=== PATIENT | female | born 1955 | race Caucasian/White ===

== ENCOUNTER 2018-05-27 00:24 | Outpatient (CLI) | payer OTHER, SELFPAY ==
--- NOTE | 2018-05-27 07:30 | DI.MAMMO_ITS ---
SYMPTOM/DIAGNOSIS: SCREENING MAMMOGRAM MAMMOGRAM: Mammograms were interpreted according to the usual protocol including computer analysis with CAD system, tomosynthesis and C view imaging. Comparison with prior examinations. No masses or microcalcifications are seen. There is nothing to suggest malignancy. IMPRESSION: Negative mammogram. Routine screening is recommended. Breast density D, Category 1. MQSA ASSESSMENT OF FINDINGS: Negative. Category 1. Patient will receive a letter notifying them of these results. BI-RADS category D. The breasts are extremely dense, which lowers the sensitivity of mammography.
== END 2018-05-27 00:44 ==
PROVIDERS: PCP Family Medicine; Visit Provider Family Medicine
DX: Z12.31 Encounter for screening mammogram for malignant neoplasm of breast (principal)
CPT/HCPCS: 77063; 77067

== ENCOUNTER 2018-10-06 11:25 | Outpatient (CLI) | payer OTHER, SELFPAY ==
[2018-10-06 12:56] LABS: HCT 40.1 % (36.0-46.0); HGB 12.8 g/dL (12.0-15.5); Mean Corp. HGB Concentration 31.9 g/dL (32.0-36.0); Mean Corpuscular Hemoglobin 27.9 pg (27.0-33.0); Mean Corpuscular Volume 87.6 fL (80-95); Mean Platelet Volume 11.3 fL (8.0-11.0); Platelet Count 208 x1000/uL (130-400); RBC 4.58 m/cumm (4.00-5.20); RBC Distribution Width 14.8 % (11.7-14.6); White Blood Cell Count 4.56 k/cumm (4.4-10.8)
[2018-10-06 12:59] LABS: Bilirubin Negative (Negative); Blood Negative (Negative); Clarity Clear; Glucose Negative (Negative); Ketones Negative (Negative); Leukocyte Esterase Negative (Negative); Nitrite Negative (Negative); Specific Gravity 1.015 (1.005-1.025); Urobilinogen 0.2 EU/dL (Up TO 0.2)
[2018-10-06 13:17] LABS: ALT 25 U/L (12-78); AST 27 U/L (15-37); Albumin 3.8 g/dL (3.4-5.0); Alkaline Phosphatase 52 U/L (46-116); Anion Gap 5.9 mmol/L (3-11); BUN 15 mg/dL (7-18); Bilirubin, Total 0.6 mg/dL (0.2-1.0); CO2 32.1 mmol/L (21.0-32.0); CREATININE 0.75 mg/dL (0.55-1.02); Calcium 10.1 mg/dL (8.5-10.1); Chloride 103 mmol/L (98-107); Glucose 98 mg/dL (70-100); Potassium 4.3 mmol/L (3.5-5.1); Sodium 141 mmol/L (136-145); TSH (W/Ref FT4) 1.53 uIU/mL (0.358-3.74); Total Protein 7.7 g/dL (6.4-8.2)
[2018-10-06 14:15] LABS: Hemoglobin A1C 6.1 % (4.5-6.2)
[2018-10-07 12:50] LABS: Lyme Ab w Rflx to Lyme Confirm Negative
== END 2018-10-06 11:45 ==
PROVIDERS: PCP Family Medicine; Visit Provider Family Medicine
DX: G62.9 Polyneuropathy, unspecified (principal); R20.0 Anesthesia of skin; R20.2 Paresthesia of skin
CPT/HCPCS: 36415; 80053; 85027; 81003; 83036; 84443; 86618

== ENCOUNTER 2018-11-07 01:47 | Outpatient (CLI) | payer OTHER, SELFPAY ==
--- NOTE | 2018-11-07 07:51 | DI.MRI_ITS ---
SYMPTOM/DIAGNOSIS: REPEAT OF SENSORY CHANGES IN LOWER EXTREMITIES/HANDS, ? 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 There are no priors for comparison. There is normal signal in the brain parenchyma. The diffusion weighted images have a normal appearance. No evidence of an acute infarct is seen. No evidence of intracranial hemorrhage is present. The ventricles and sulci are consistent with the patient's age. There is no acute midline shift or mass effect. There is a flow void seen in the [place]. The orbits and retro-orbital soft tissues are unremarkable. The pituitary gland has a normal appearance. There is mild mucosal thickening in the right maxillary sinus. The remaining visualized paranasal sinuses are clear. IMPRESSION: No evidence of an intracranial mass, infarct or hemorrhage.
== END 2018-11-07 02:07 ==
PROVIDERS: PCP Family Medicine; Visit Provider Family Medicine
DX: R20.8 Other disturbances of skin sensation (principal); G62.9 Polyneuropathy, unspecified; Z86.69 Personal history of other diseases of the nervous system and sense organs
CPT/HCPCS: 70551

== ENCOUNTER 2019-07-08 15:31 | Emergency (ER) | payer OTHER, SELFPAY ==
[2019-07-08 15:36] VITALS: BP 118/65; PULSE 65; RESP 22; TEMP 36.8; O2SAT 98
--- NOTE | 2019-07-08 17:19 | DI.RAD_ITS ---
EXAM: XR LUMBAR SPINE COMPLETE INDICATION: pain, fall. COMPARISON: No exams were available for comparison TECHNIQUE: 2D digital imaging was performed. FINDINGS: There are 5 lumbar type vertebral bodies. No spondylolysis or spondylolisthesis is present. No acute fracture or subluxation is seen in the lumbar spine. Degenerative changes are seen in the lumbar spine. The findings are most marked at the L5-S1 disc sp denita. There is a large amount of stool throughout the colon which may represent constipation. There are calcifications overlying the left kidney suspicious for nephrolithiasis. IMPRESSION: 1. No acute fracture or subluxation in the lumbar spine. 2. Degenerative changes in the lumbar spine. 3. Findings suspicious for nephrolithiasis.
--- NOTE | 2019-07-08 17:19 | DI.RAD_ITS ---
EXAM: XR RIBS LT PA CHEST 3V INDICATION: pain, fall. COMPARISON: ABD FLAT UPRIGHT PA CHEST from 05/06/2015 TECHNIQUE: 2D digital imaging was performed. FINDINGS: The heart size and pulmonary vasculature are within normal limits. The lungs are clear. No pleural effusion or pneumothorax is identified. No fracture is identified. The left ribs are intact. IMPRESSION: No acute pulmonary process. No evidence of a rib fracture.
--- NOTE | 2019-07-08 17:19 | DI.RAD_ITS ---
EXAM: XR THORACIC SPINE COMPLETE INDICATION: pain, fall. COMPARISON: CERV SP WITH OBL FLEX/EXT from 12/29/2011 TECHNIQUE: 2D digital imaging was performed. FINDINGS: There is normal alignment of the thoracic spine. No acute fractures or subluxations are present. Mi ld to moderate degenerative changes are seen in the thoracic spine. The paraspinal lines appear unre markable. IMPRESSION: No acute fracture or subluxation in the thoracic spine.
--- NOTE | 2019-07-08 17:26 | DI.VRAD_ITS ---
PROCEDURE INFORMATION: Exam: XR Lumbosacral Spine, 4 or 5 Views Exam date and time: 07/08/2019 5:18 PM Clinical history: 64 years old, female; Low back pain TECHNIQUE: Imaging protocol: XR of the lumbosacral spine, 4 or 5 views. COMPARISON: No relevant prior studies available. FINDINGS: Vertebrae: There is marked disc space narrowing at L5-S1 with small vertebral endplate osteophytes. Vertebral heights are well maintained. No fracture or spondylolisthesis is seen. Gastrointestinal tract: There is a moderate amount of stool throughout the colon. This partially obscures the sacrum. Organs: Multiple calculi are seen overlying each kidney likely representing renal stones. Soft tissues: Normal. IMPRESSION: 1. No fracture or other acute abnormality seen. 2. L5-S1 degenerative disc disease. 3. Suspect bilateral renal stones. Dictated and Authenticated by: Aroldo Shrestha MD. Ordering:RACHELLE High MD
--- NOTE | 2019-07-08 17:27 | DI.VRAD_ITS ---
PROCEDURE INFORMATION: Exam: XR Left Ribs with PA Chest, 3 Views Exam date and time: 07/08/2019 5:17 PM Clinical history: 64 years old, female; Injury or trauma; Fall; Initial encounter; Rib area, left side; Blunt trauma TECHNIQUE: Imaging protocol: XR Left ribs 3 views with PA chest. COMPARISON: No relevant prior studies available. FINDINGS: Lungs: Unremarkable. No consolidation. Pleural space: Unremarkable. No pleural effusion. No pneumothorax. Heart/Mediastinum: Unremarkable. No cardiomegaly. Bones/joints: Unremarkable. IMPRESSION: No acute findings. Dictated and Authenticated by: Aroldo Shrestha MD. Ordering:RACHELLE High MD
--- NOTE | 2019-07-08 17:29 | DI.VRAD_ITS ---
PROCEDURE INFORMATION: Exam: XR Thoracic Spine, 3 Views Exam date and time: 07/08/2019 5:17 PM Clinical history: 64 years old, female; Injury or trauma; Fall; Initial encounter; Blunt trauma (contusions or hematomas) TECHNIQUE: Imaging protocol: XR of the thoracic spine, 3 views. COMPARISON: No relevant prior studies available. FINDINGS: Vertebrae: There is mild disc space narrowing throughout the thoracic spine. Moderate degenerative disc disease is incidentally visualized in the cervical spine at what appears to be C5-6. No fracture or spondylolisthesis. Soft tissues: Normal. IMPRESSION: 1. No acute findings. 2. Xsxq-xw-zasjnzvp degenerative disc disease. Dictated and Authenticated by: Aroldo Shrestha MD. Ordering:RACHELLE High MD
[2019-07-08 18:28] LABS: Bilirubin Negative (Negative); Blood Negative (Negative); Clarity Sl Cloudy (Clear); Glucose Negative (Negative); Ketones Negative (Negative); Leukocyte Esterase Trace (Negative); Nitrite Negative (Negative); Specific Gravity 1.025 (1.005-1.025); Urobilinogen 0.2 EU/dL (Up TO 0.2)
[2019-07-08 18:37] LABS: Bacteria Many HPF (Negative); C & S Indicated? Yes; Crystals Negative HPF (Negative); Epithelial Cells Many HPF (Negative); Mucus Negative (Negative); Other Cells Few Transitional (Negative); RBC Negative (0-2)
[2019-07-08 19:03] VITALS: BP 108/65; PULSE 68; RESP 17; O2SAT 99
--- NOTE | 2019-07-08 22:38 | ED.GENADUL_ITS ---
Discharge Plan Disposition Patient Disposition: HOME Condition: Good Discharge Details Chief Complaint: Nk/Back Pain Clinical Impression: Back contusion Primary Care Provider: Chante Telles ED Provider: Anila Melendez Home Meds and New Rx's Prescriptions: New diazepam [Valium] 5 mg tablet 5 mg PO TID PRN (Reason: muscle spasm) Qty: 6 RF: 0 No Action Matrix Synergy tablet See Rx Instructions .ROUTE .COMPLEX RF: 0 Optimum tablet See Rx Instructions .ROUTE .COMPLEX RF: 0 Glucosamine Complex-MSM 1 EACH capsule 1,000 mg PO BID RF: 0 calcium carbonate-vitamin D3 [Caltrate with Vitamin D3] 1 EACH tablet 1 ea PO DAILY RF: 0 turmeric root extract 500 MG capsule 1 cap PO BID RF: 0 Estring 2 mg (7.5 mcg /24 hour) ring 1 vag ring VG Q 3 months Qty: 1 RF: 4 Discharge Instructions Instructions: Contusion in Adults (ED) Additional Instructions: Ice or heat to the area of discomfort. Motrin or tyelnol for soreness if needed. Rest. Activities as tolerated. Use muscle relaxant if needed for severe muscle spasm if needed. Do not drive, drink, or work, while taking this medication. Recheck with PCP in next 3-5 days if not improving. Return for any worsening, concerns, or alarming symptoms sooner if needed. Discharge Data Discharge Date/Time-TO BE ENTERED AT DEPARTURE: 07/08/19 19:01 Medical Decision Making Is a 64-year-old woman who sustained a trip and fall backwards landing on her low back. Patient has x-rays this evening which are ultimately unremarkable for identifiable fracture of the lower back. Incidental finding of renal stones noted which I feel are entirely unrelated to tonight fall. Patient was made aware of the incidental findings. Degenerative changes noted. Patient offered medication for spasm but does report her pain is improved at this time and she does not feel she needs medications by mouth at this time. Was provided with 6 tablets of Valium for severe intolerable muscle spasm pain which she feels she is very unlikely to fill would prefer treatment with Motrin or Tylenol at this time and conservative treatments with ice and rest. Alarming signs and symptoms for which patient should have immediate return were discussed. Nothing to indicate acute renal injury as she has no hematuria, dizziness weakness or significant hypotension. The patient was stable and requested discharge. Prior to discharge, my usual and customary return precautions were reviewed with the patient - this included follow-up instructions and reasons to return to the Emergency Department if conditions worsens, does not improve as expected, or other new concerns arise. HPI General Date/Time Provider Initiated Documentation: 07/08/19 15:56 . HPI Narrative: Is a 64-year-old woman who presents for a fall. Patient reports she was dragging a log backwards when she tripped over a small branch behind her ultimately falling on another log across her mid and lower back. Injury occurred today. Patient reports pain at the site of impact in her mid and lower back. Patient denies any hematuria since fall several hours ago. Denies lightheaded or dizziness. Patient reports she is comfortable when sitting but does report significant pain when standing or trying to extend backwards. Patient does report increased pain when ambulating. Patient reports during episodes of back pain with movement pain is difficult to tolerate. Patient denies any numbness, tingling or weakness from the waist down. No abdominal pain, distention or abdominal concerns at this time. Eating and drink without difficulty. Moving bowels without difficulty. Urinating normally. Denies headache or dizziness. Denies striking head. No neck pain. Related Data Home Medications Medication Instructions Recorded Confirmed calcium carbonate-vitamin D3 1 ea PO DAILY 11/01/12 07/08/19 [Caltrate 600 + D Tablet] ikijpcueyuq-aty-jrlkpflxr-vitC 1,000 mg PO BID 11/01/12 07/08/19 [Glucosamine Complex-Msm Cap] turmeric root extract 1 cap PO BID 04/24/13 07/08/19 Matrix Synergy See Rx Instructions .ROUTE .COMPLEX 10/06/18 07/08/19 Optimum See Rx Instructions .ROUTE .COMPLEX 10/06/18 07/08/19 estradiol 1 vag ring VG Q 3 months #1 each 06/23/19 07/08/19 diazepam [Valium] 5 mg PO TID PRN #6 tab 07/08/19 Previous Rx's Medication Instructions Recorded estradiol 1 vag ring VG Q 3 months #1 each 06/23/19 diazepam [Valium] 5 mg PO TID PRN #6 tab 07/08/19 Allergies Allergy/AdvReac Type Severity Reaction Status Date / Time No Known Drug Allergies Allergy Unverified 07/08/19 15:40 General Stated Complaint: Nk/Back Pain MARILYN: 3 Review of Systems All systems reviewed & are unremarkable except as noted in HPI and below Constitutional Constitutional: Denies chills, Denies fatigue, Denies fever(s), Denies headache(s) and Denies malaise ENT Ears, Nose, Mouth, and Throat: Denies vertigo, Denies dizziness, Denies headache(s) and Denies neck pain Cardiovascular Cardiovascular: Denies chest pain Respiratory Respiratory: Denies cough, Denies pain on inspiration, Denies pain with cough and Denies wheezing Gastrointestinal Gastrointestinal: Denies abdominal pain and Denies bloating Genitourinary Genitourinary: Denies hematuria and Denies dysuria Musculoskeletal Musculoskeletal: Reports back pain, Denies neck pain, Denies numbness and Denies radiating pain into limb Neurologic Neurologic: Denies vertigo, Denies dizziness, Denies headache(s) and Denies numbness Endocrine Endocrine: Denies fatigue Allergic/Immunologic Allergic/Immunologic: Denies wheezing [facility] Medical History Acute infective polyneuritis (Resolved) 11/01/12 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 with recent recurrence of symptoms in Sep 2018 Anal fissure (Resolved) 11/01/12 Annual physical exam (Resolved 12/19/15) Chronic inflammatory demyelinating polyradiculoneuropathy (Resolved) 11/01/12 Disorder of breast (Resolved) dense,nodular DUB (dysfunctional uterine bleeding) (Resolved) 11/01/12 Heart murmur (Resolved) 11/01/12 intermittent systolic murmur Onychomycosis (Chronic) Shoulder pain (Resolved) 07/29/03 left shoulder bursitis Social History Smoking/Tobacco Use Status: Never Alcohol Intake: current Alcohol Intake frequency: a few times a week Drug use: Never Substance use type: does not use Household members: spouse current occupation: [employer] Pets and animals: Yes Pets and animals: cat(s) What type of physical activity do you participate in: walking Duration: 30-45 minutes/day Frequency: 3-4 times per week Lizabeth/Scientology: Adventist Special lizabeth needs: No Do you feel safe at home: Yes Do you feel safe in your relationship?: Yes Exam Narrative Exam Narrative: CONST: Healthy appearing patient, in no acute distress. Well hydrated. Alert and alert. NECK: Normal visual inspection. FROM. Trachea midline. No Midline tenderness. CHEST: Normal insepection of the chest. No anterior chest pain with palpation no significant lateral chest palpation of the ribs. Mild back pain with palpation of the inferior ribs on the left. RESP: Normal respiratory effort. Speaking full sentences. No cough. No audible wheezing. No retractions. Breath sounds clear and full bilaterally. No rhonchi, rales or wheezing CARDIO: No JVD. Regular rate and rhythm, no murmurs or rubs. MUSCULOSKELETAL: Normal Gait. FROM of all extremities. No foot drop. Low back pain on the left with straight leg raise bilaterally at approximately 45 degrees. DTRs intact and equal bilateral GI: Abdomen is soft, nontender, no rebound, guarding or peritoneal signs Back; mild inferior thoracic tenderness and superior lumbar tenderness with palpation. Soft tissue swelling noted paraspinal area on the left mid and lower back. No ecchymosis. No CVA tenderness. SKIN: Normal. Dry. No rashes. NEURO: Alert and awake. Speech clear. PSYCH: Normal affect. Cooperative. Course Vital Signs Vital signs: Vital Signs Temperature 36.8 C 07/08/19 15:36 Pulse 65 07/08/19 15:36 Respiratory Rate 22 07/08/19 15:36 Blood Pressure 118/65 07/08/19 15:36 Pulse Oximetry 98 07/08/19 15:36 Temperature 36.8 C 07/08/19 15:36 Temperature Source Skin 07/08/19 15:36 Pulse 68 07/08/19 19:03 Respiratory Rate 17 07/08/19 19:03 Respiratory Effort 07/08/19 15:42 Blood Pressure 108/65 07/08/19 19:03 Blood Pressure Position Sitting 07/08/19 15:36 Pulse Oximetry 99 07/08/19 19:03 Oxygen Delivery Method Room Air 07/08/19 15:36 Oxygen Flow Rate 0 07/08/19 15:36 Pain Level 8 07/08/19 15:53 Lab/Test Results Lab/Test Results: 07/08/19 18:21 Urine - Reflex from Ua Urine Culture - Pending Laboratory Tests Range/Units 07/08/19 18:21 Urine Color (Yellow) Yellow Urine Clarity (Clear) Sl cloudy Urine pH (5-8) 6.0 Ur Specific [place] (1.005-1.025) 1.025 Urine Protein (Negative) mg/dL Negative Urine Ketones (Negative) mg/dL Negative Urine Blood (Negative) Negative Urine Nitrite (Negative) Negative Urine Bilirubin (Negative) Negative Urine Urobilinogen (Up TO 0.2) EU/dL 0.2 Ur Leukocyte Esterase (Negative) Trace H Urine RBC (0-2) Negative Urine WBC (0-5) HPF 10-20 Ur Epithelial Cells (Negative) HPF Many Urine Crystals (Negative) HPF Negative Urine Bacteria (Negative) HPF Many Urine Mucus (Negative) Negative Urine Other (Negative) Few transitional Ur Culture Indicated? Yes Urine Glucose (Negative) mg/dL Negative
== END 2019-07-08 19:01 | disposition home or self-care (01) ==
PROVIDERS: Emergency Provider Physician Assistant; PCP Family Medicine
DX: S30.0XXA Contusion of lower back and pelvis, initial encounter (principal); N20.0 Calculus of kidney; W01.0XXA Fall on same level from slipping, tripping and stumbling without subsequent striking against object, initial encounter
CPT/HCPCS: 71101; 99284; 72072; 72110; 81003; 81015; 87086

== ENCOUNTER 2020-01-02 12:58 | Outpatient (REF) | payer OTHER, SELFPAY ==
--- NOTE | 2020-01-02 11:00 | PAPFT_PTH ---
PATIENT: Roseanna Smith LOC: [facility] U#:[id number] AGE/SX: 64/F ROOM: RE01/02/[address]: Chante Telles MD, DC : 1955 BED: DIS: 01/02/2020 SPEC #: [id number] RECD: 01/03/20 12:03 STATUS: KENNA RIDDLE #: [id number] PETE: 01/02/20 11:[address]: Chante Telles DEPT: [facility] Cytology RECD BY: Francisco Bishop Tissues: 1 - CX/ENDOCX FOR PAP SMEARS Procedures: PAP THIN PREP/UVM Screening HPV DNA PROBE Comments: [id number]
== END 2020-01-02 13:18 ==
LOC: LBN 12:58
PROVIDERS: PCP Family Medicine; Visit Provider Family Medicine
DX: Z12.4 Encounter for screening for malignant neoplasm of cervix (principal); Z11.51 Encounter for screening for human papillomavirus (HPV)
CPT/HCPCS: 88142; 87624

== ENCOUNTER 2020-01-11 01:04 | Outpatient (CLI) | payer OTHER, SELFPAY ==
--- NOTE | 2020-01-11 06:15 | DI.MAMMO_ITS ---
EXAM: MG MAMMO SCREENING CLINICAL HISTORY: screening,Z12.39 TECHNIQUE: Mammograms were interpreted according to the usual protocol including computer analysis w [employer] CAD system, tomosynthesis and C-view imaging. COMPARISON: FINDINGS: The breasts are heterogeneously dense. No dominant mass or clumped microcalcification is identified in either breast. The current examination is compared with previous examinations including April 2018 and there has been no gross interval change appearance comparison previous studies. IMPRESSION: No specific evidence of malignancy at this time. Routine screening examinations are suggested at yea rly intervals due to the family history of breast carcinoma. BI-RADS Cat 1 - Negative: Breast Density - Category C - Heterogeneously dense:
== END 2020-01-11 01:24 ==
PROVIDERS: PCP Family Medicine; Visit Provider Family Medicine
DX: Z12.31 Encounter for screening mammogram for malignant neoplasm of breast (principal); Z80.3 Family history of malignant neoplasm of breast
CPT/HCPCS: 77063; 77067

== ENCOUNTER 2020-01-11 01:47 | Outpatient (CLI) | payer OTHER, SELFPAY ==
[2020-01-11 09:06] LABS: Calculated LDL 142 mg/dL (<100); Cholesterol 247 mg/dL (<200); HDL Cholesterol 97 mg/dL (40-60); Triglyceride 40 mg/dL (<150)
== END 2020-01-11 02:07 ==
PROVIDERS: PCP Family Medicine; Visit Provider Family Medicine
DX: Z00.00 Encounter for general adult medical examination without abnormal findings (principal); E11.9 Type 2 diabetes mellitus without complications
CPT/HCPCS: 36415; 80061; 83036

== ENCOUNTER 2020-02-20 08:11 | Outpatient (CLI) | payer OTHER, SELFPAY ==
[2020-02-23 01:03] LABS: SARS-CoV-2 RNA Undetected (Undetected); SARS-CoV-2 Specimen Source Nasopharynx
== END 2020-02-20 08:31 ==
PROVIDERS: PCP Family Medicine; Visit Provider Family Medicine
DX: Z11.59 Encounter for screening for other viral diseases (principal)
CPT/HCPCS: U0003

== ENCOUNTER 2020-03-14 06:20 | Day surgery (SDC) | payer OTHER, SELFPAY ==
[2020-03-14 06:13] VITALS: BP 114/72; PULSE 58; RESP 20; TEMP 36.6; O2SAT 98
[2020-03-14] MEDS: Lactated Ringers 1,000 ML 80 ML IV (06:49)
--- NOTE | 2020-03-14 07:55 | BOWEL_PTH ---
PATIENT: Roseanna Smith LOC: [facility] U#:[id number] AGE/SX: 65/F ROOM: RE03/14/[address]: Letty Montiel : 1955 BED: DIS: 03/14/2020 SPEC #: [id number] RECD: 03/14/20 12:26 STATUS: KENNA REQ #: [id number] PETE: 03/14/20 07:[address]: Letty Montiel DEPT: Surgical Specimen RECD BY: Roseanna Thomas ENTERED: 03/14/20 12:26 SP TYPE: Bowel OTHR DR: Chante Telles MD, DC Tissues: 1 - BIOPSY BOWEL Procedures: GROSS AND MICRO LEVEL 4 Comments: [id number]
[2020-03-14] MEDS: Endoscopic Tattoo 5 ML SYR IJ (08:18)
--- NOTE | 2020-03-14 08:33 | W.COLOREPORT ---
Date of service: 03/14/20 Time of Service: 08:33 Colonoscopy Report Date of procedure: 03/14/20 Pre-op diagnosis general: +cologuard Post-op diagnosis procedure note: other (polyp x2 @ 70cm ) Procedure: CE polypectomy x2. tatoo clip x2 Surgeon: Letty Montiel Anesthesia proc note operative: MAC Estimated blood loss (mL): 2 Pathology: other Complications: None Disposition: same day Prep: Miralax/Dulcolax Retraction Time: 45 mins Procedure Description: After informed consent was obtained the patient was taken to the procedure room and placed in a left decubitous position. Monitors were applied and a time out was done. The patients name, date of , procedure, allergies to medications and metal in their body was reviewed. The patient was then sedated. Once sedated and comfortable a rectal exam was done. External exam was normal. Internal exam revealed a normal sphincter tone and no palpable masses. The scope was then introduced and retrofelexed. No internal hemorrhoids were identified. The scope was then advanced to the cecum [w/out difficulty. The TI and appendiceal orifice were identified. The prep was adequate. The scope was then slowly retracted over 45 minutes back into the rectum. Polyps were removed at 70.x2 at the hepatic flexure. One polyp was less than 5 mm. The second polyp was greater than 1 cm. It was flat. It was at 70 cm. It was removed with hot biting biopsy forceps. The area was tattooed. 2 endoclips were placed across the area. There is no bleeding noted. There are 1 or 2 small diverticula in the sigmoid colon there is a very small and of no consequence. There are no other polyps in the colon. There is no signs of any bleeding. The mucosa is pink and healthy. The scope was removed and the patient was woken up and taken back to Same day surgery in stable condition. The patient tolerated the procedure well and there were no immediate complications. Follow up: The patient should follow up in 1-2 years unless they develop changes in bowel habits or other new gastrointestinal complaints.
--- NOTE | 2020-03-14 08:36 | W.PM.DSUDISC ---
Discharge Plan Disposition Patient Disposition: HOME Condition: Good Discharge Details Reason For Visit: colon scope Attending Provider: Letty Montiel Primary Care Provider: Chante Telles Home Meds and New Rx's Prescriptions: No Action Estring 2 mg (7.5 mcg /24 hour) ring 1 vag ring VG [id number] RF: 0 Discharge Instructions Additional Instructions: Findings: Polyp x2 No ASA/NSAID's x2 weeks. Soft diet x 72 hrs than regular diet no heavy lifting or strenuous activity x 72hrs Repeat scope in 1-2 yrs. Follow up:2-3 wks w/ Tiana Please call if you develop: fevers >101.5 Nausea or Vomiting Abdominal pain that is not transient DAY SURGERY UNIT POST COLONOSCOPY INSTRUCTIONS 1. Because there will be medication in your system for the next 24 hours, you may feel a little sleepy. Your coordination will be affected. Therefore: a. Do not drive or operate dangerous equipment for 24 hours. b. Do not drink alcohol beverages for 24 hours (not even beer). c. Plan to go home and rest for the day. 2. Generally there are no restrictions on your activity after a day or so has gone by, but you may feel a bit fatigued for a few days. 3 After you arrive home you may have a light meal and return to a normal diet as you can tolerate it without feeling sick to your stomach. 4. After surgery, you may feel pain or discomfort. This should be only transient, but if it persists please contact your doctor. 5. If there are any questions regarding the findings of your procedure, please feel free to contact your doctor. 6. If you are unable to contact your doctor with a problem, contact the hospital at [phone]. 7. Continue all your regular medications unless directed otherwise. I understand the above instructions and have no questions. Signature of Patient or Responsible Adult Escort Date/Time Name of Responsible Adult Escort Signature of Nurse Date/Time Discharge Orders Discharge Orders: Discharge Order (Routine); Ordered 03/14/20 Ordered By: Letty Montiel DS: Diagnosis Discharge Diagnosis (1) Positive colorectal cancer screening using Cologuard test: Status: Acute (2) Adenomatous colon polyp: Status: Acute
[2020-03-14 09:00] VITALS: BP 125/72; PULSE 60; RESP 18; TEMP 36.2; O2SAT 99
== END 2020-03-14 10:20 | disposition home or self-care (01) ==
LOC: SUR 12:45
PROVIDERS: PCP Family Medicine; Visit Provider Surgery
PROC: 0DJD8ZZ Inspection of Lower Intestinal Tract, Via Natural or Artificial Opening Endoscopic (ICD-10-PCS; CPT 45378; principal; 2020-03-14 07:30)
DX: R19.5 Other fecal abnormalities (principal); Z87.19 Personal history of other diseases of the digestive system; K63.5 Polyp of colon
CPT/HCPCS: 45381; 45384; 88305; J2001

== ENCOUNTER → 2020-03-27 14:02 | Outpatient (BNVA) | payer OTHER, SELFPAY | PROVIDERS: PCP Family Medicine; Referring Provider Family Medicine; Visit Provider Surgery | DX: Z48.815 Encounter for surgical aftercare following surgery on the digestive system (principal); K63.5 Polyp of colon | CPT/HCPCS: 99211 ==

== ENCOUNTER 2020-08-06 01:49 | Outpatient (CLI) | payer OTHER, SELFPAY ==
--- NOTE | 2020-08-06 07:45 | DI.RAD_ITS ---
EXAM: XR FOOT LT COMPLETE CLINICAL HISTORY: left foot pain,m79.672 TECHNIQUE: COMPARISON: No exams were available for comparison FINDINGS: Three views were obtained. BB marker is placed over the plantar aspect 4th. Slight degenerative misael nges the IP joints are noted. No other focal abnormality seen. No abnormality of alignment. IMPRESSION: Mild DJD of foot. RADIATION DOSE DELIVERED: Total DLP Total DLP
== END 2020-08-06 02:09 ==
PROVIDERS: PCP Family Medicine; Visit Provider Family Medicine
DX: M19.072 Primary osteoarthritis, left ankle and foot (principal)
CPT/HCPCS: 73630

== ENCOUNTER 2021-02-27 20:46 | Outpatient (REF) | payer OTHER, MEDICARE, SELFPAY ==
[2021-02-27 21:35] LABS: Abs Immature Grans 0.01 10^3/uL (0.0-0.06); Absolute Basophil Count 0.04 10^3/uL (0.0-0.2); Absolute Eosinophil Count 0.18 10^3/uL (0.0-0.7); Absolute Lymphocyte Count 1.08 10^3/uL (1.2-3.4); Absolute Monocyte Count 0.42 10^3/uL (0.1-0.8); Absolute Neutrophil Count 3.06 10^3/uL (1.2-6.7); Basophils % 0.8; Eosinophils % 3.8; Immature Grans % 0.2; Lymphocytes % 22.5; MCH 27.6 pg (27.0-33.0); MCV 89.2 fL (80-95); Monocytes % 8.8; Neutrophils % 63.9; Nucleated RBC 0 %; Platelet Count 223 10^3/uL (130-400); RBC 4.71 10^6/uL (3.93-5.22); RDW 15.1 % (11.7-14.6); RDW-SD 50.2 fL; WBC 4.79 10^3/uL (4.4-10.8)
[2021-02-27 21:45] LABS: Iron 88 ug/dL (50-170)
[2021-02-27 21:51] LABS: Hemoglobin A1C 6.1 % (<5.7)
[2021-02-27 21:58] LABS: Ferritin 20 ng/mL (8-252)
== END 2021-02-27 20:47 | disposition home or self-care (01) ==
LOC: LBN 20:46
PROVIDERS: PCP Family Medicine; Visit Provider Family Medicine
DX: D64.9 Anemia, unspecified (principal); E11.9 Type 2 diabetes mellitus without complications; R21 Rash and other nonspecific skin eruption; Z00.00 Encounter for general adult medical examination without abnormal findings; M25.531 Pain in right wrist
CPT/HCPCS: 82728; 83036; 83540; 85025

== ENCOUNTER 2021-03-05 15:08 | Outpatient (CLI) | payer OTHER, MEDICARE, SELFPAY ==
--- NOTE | 2021-03-05 14:00 | DI.RAD_ITS ---
Exam(s) XR WRIST RT COMPLETE EXAM: XR WRIST RT COMPLETE CLINICAL HISTORY: F/u. TECHNIQUE: 2D digital imaging was performed. COMPARISON: No exams were available for comparison FINDINGS: BONES: There is a nondisplaced transverse fracture through the distal metaphysis of the right radius. No bony destructive lesion is seen. JOINTS: The carpal bones are normally aligned. SOFT TISSUE: Normal. IMPRESSION: Nondisplaced transverse fracture through the distal metaphysis of the right radius. DATA REPOSITORY: RADIATION DOSE DELIVERED:
== END 2021-03-05 15:09 | disposition home or self-care (01) ==
LOC: DIORS 15:09
PROVIDERS: PCP Family Medicine; Referring Provider Family Medicine; Visit Provider Student in an Organized Health Care Education/Training Program
DX: S52.561A Barton's fracture of right radius, initial encounter for closed fracture (principal); X58.XXXA Exposure to other specified factors, initial encounter
CPT/HCPCS: 73110

== ENCOUNTER 2021-03-26 15:00 | Outpatient (CLI) | payer OTHER, MEDICARE, SELFPAY ==
--- NOTE | 2021-03-26 14:45 | DI.RAD_ITS ---
Exam(s) XR WRIST RT LIMITED EXAM: XR WRIST RT LIMITED CLINICAL HISTORY: distal fx f/u. TECHNIQUE: 2D digital imaging was performed. COMPARISON: CR XR WRIST RT COMPLETE from 03/05/2021 FINDINGS: Again noted is a healing transverse fracture site the distal radius as denoted by a sclerotic line we re evident on previous. No other fractures. No displacement. No osseous lesions. No significant u lnar variance IMPRESSION: DATA REPOSITORY: RADIATION DOSE DELIVERED:
== END 2021-03-26 15:01 | disposition home or self-care (01) ==
LOC: DIORS 15:02
PROVIDERS: PCP Family Medicine; Visit Provider Student in an Organized Health Care Education/Training Program
DX: S52.591D Other fractures of lower end of right radius, subsequent encounter for closed fracture with routine healing (principal); X58.XXXA Exposure to other specified factors, initial encounter
CPT/HCPCS: 73100

== ENCOUNTER 2021-08-29 01:55 | Outpatient (CLI) | payer OTHER, SELFPAY ==
[2021-08-29 10:25] LABS: Source Nasal/Nares
[2021-08-29 16:48] LABS: COVID-19 PCR Negative (Negative)
== END 2021-08-29 01:56 | disposition home or self-care (01) ==
LOC: LBO 01:59
PROVIDERS: PCP Family Medicine; Visit Provider Student in an Organized Health Care Education/Training Program
DX: Z20.822 Contact with and (suspected) exposure to COVID-19 (principal)
CPT/HCPCS: 87635

== ENCOUNTER 2021-09-01 10:52 | Day surgery (SDC) | payer OTHER, SELFPAY ==
--- NOTE | 2021-09-01 11:07 | W.ANESPRE ---
General Info Date of Service Date Performed: 09/01/21 Height: 5 ft 4 in Weight: 57.606 kg Body Mass Index (BMI): 21.8 Surgical Procedure: Operation Date: 09/01/21 15:25 Proposed Procedures Side Surgeon p Wrist ECTR Right Miguel Sanders MD Meds Allergies and Home Medications Allergies Allergy/AdvReac Type Severity Reaction Status Date / Time No Known Drug Allergies Allergy Verified 09/01/21 11:11 Home Medication Medication Instructions Recorded tacrolimus 0.1 % topical ointment 1 applic TOPICAL BID PRN 08/05/20 estradiol 1 vag ring VG [id number] #1 ea 09/05/20 clobetasol 0.05 % topical ointment 1 applic TOPICAL DAILY PRN #60 g 02/27/21 acetaminophen 500 mg PO Q6H PRN #60 tab 09/01/21 hydrocodone-acetaminophen 1 tab PO Q6H PRN #4 tab 09/01/21 ibuprofen 600 mg PO TID PRN #60 tab 09/01/21 Current Visit Medications: Current Medications Generic Name Dose Route Start Last Admin Trade Name Freq PRN Reason Stop Dose Admin Ringer's Solution 1,000 mls @ 80 mls/hr 09/01/21 06:00 IV 09/27/21 23:59 INFUSION NAYANA Cefazolin Sodium/Dextrose 2 gm in 50 mls @ 100 mls/hr 09/01/21 06:00 Ancef Duplex IVPB 09/01/21 16:00 PREOP NAYANA IV Miscellaneous Supplies 1 each 09/01/21 06:00 Iv Access IV 09/27/21 23:59 DIRECTED NAYANA Sodium Chloride 0 ml 09/01/21 06:00 Normal Saline Flush 10 Ml Syr IV 09/27/21 23:59 PRN PRN Sodium Chloride 0 ml 09/01/21 06:00 Normal Saline 10 Ml Vial IJ 09/27/21 23:59 DIRECTED PRN Sterile Water 0 ml 09/01/21 06:00 Water,Injection,Sterile 10 Ml Vial IJ 09/27/21 23:59 DIRECTED PRN PFSH Active Problems Active Problems: Problem Status Onset Code Right carpal tunnel syndrome G56.01 Distal radius fracture, right 02/14/21 S52.501A Anemia D64.9 Left foot pain M79.672 Adenomatous colon polyp D12.6 Positive colorectal cancer screening using Cologuard test R19.5 Numbness and tingling in both hands R20.0, R20.2 Numbness in feet R20.0 Neuropathy Knee pain M25.569 Positive colorectal cancer screening using Cologuard test R19.5 Annual physical exam 12/19/15 Z00.00 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 pt. states it is non exisitent anymore Hyperplastic colon polyp Shoulder pain 07/29/03 left shoulder bursitis Surgical History Surgical History Appendectomy (~11/2007) pt. 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 Hx of appendectomy 08/30/07 Hx of colonoscopy Hx of wisdom tooth extraction Tobacco Smoking/Tobacco Use Status: Never Passive smoking exposure: No Second hand exposure: No Alcohol Alcohol Intake: current Alcohol intake frequency: a few times a week Alcohol type: wine Substance Use Substance use: Never Substance use type: does not use Vital Signs and Lab Results Lab Results Blood Type / Crossmatch: No Data to Display Complete Blood Count: No Data to Display Complete Metabolic Panel: No Data to Display Liver Function Panel: No Data to Display Coagulation Panel: No Data to Display Cardiac Panel: No Data to Display Arterial Blood Gas: No Data to Display Venous Blood Gas: No Data to Display Pancreas Panel: No Data to Display Thyroid Panel: No Data to Display Infectious Disease: Coronavirus (COVID-19)(PCR) Negative (Negative) 08/29/21 08:38 08/29/21 Coronavirus 2019 Source Nasal/Nares 08/29/21 08:38 08/29/21 Blood Cultures: No Data to Display Toxicology Panel: No Data to Display Anesthesia Assessment and Plan Anesthesia History Personal History: No History of Anesthesia Complications Family History: No Family History of Anesthesia Complications Exercise Tolerance Exercise Tolerance: Metabolic Equivalents>4 Pertinent Negatives Pertinent Negatives: No Symptoms of GERD Cardiac & Pulmonary Exam Cardiac Exam: Normal S1/S2 Heart Sounds Pulmonary Exam: Clear Bilateral Breath Sounds Implantable Cardiac Device Does patient have a Pacemaker or an ICD?: No Airway Exam Known Difficult Airway: No Mallampati Class: 2 Mouth Opening: Normal (> 3cm) Thyromental Distance: Greater than 3 cm Neck Range of Motion: Full ROM Neck Circumference: Normal Teeth Condition: Normal Dentition ASA Classification ASA Score: ASA 2 Emergency Case?: No NPO Status NPO Status: NPO Clears >2 hours, Solids >8 hours Anesthesia Plan Resuscitation Status: Full Code Anesthesia Technique: General Anesthesia Airway Planned: Natural Airway Monitors Used: Standard Monitors
[2021-09-01 11:14] VITALS: BP 127/65; PULSE 60; RESP 18; TEMP 36.8; O2SAT 99
[2021-09-01] MEDS: Lactated Ringers 1,000 ML 80 ML IV (11:21)
--- NOTE | 2021-09-01 11:32 | W.PREOPHP ---
Assessment and Plan Assessment and plan (1) Right carpal tunnel syndrome: Status: Acute Assessment and plan: Roseanna is a 66-year-old who has carpal tunnel syndrome of the right side following a nondisplaced distal radius fracture. She has failed nonoperative treatment options and desires proceed with operative intervention. I discussed the technical details of carpal tunnel release and that I perform an endoscopic release, but would make a larger, open, incision if necessary for visualization. I discussed the risks of the procedure to include, but not limited to, bleeding, infection, palmar pain, stiffness, damage to nerves, damage to vessels, damage to tendons, weakness, recurrence, and incomplete release. Given these risks, Roseanna desires to proceed. History of Present Illness History of Present Illness Chief Complaint: Right Carpal Tunnel Syndrome Narrative: Roseanna is a 66-year-old who has carpal tunnel syndrome on the right side. She did have a nondisplaced distal radius fracture on this side which is likely exacerbated underlying carpal tunnel syndrome. Her symptoms are clinically present and are bothering her day-to-day basis despite nonoperative treatments. She reports numbness of the middle finger, index tear, and thumb. Please see my previous office note for complete details. 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 pt. states it is non exisitent anymore Hyperplastic colon polyp Shoulder pain 07/29/03 left shoulder bursitis Surgical History Appendectomy (~11/2007) pt. 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 Paternal Grandmother Breast cancer Brother Essential hypertension Depression Alcohol abuse Brother Hypertension Son No problems noted. Son Alcohol abuse Social History Smoking/Tobacco Use Status: Never Second Hand Exposure: No Smoking risk assessment performed?: Yes Alcohol Intake: current Alcohol Intake frequency: a few times a week Alcohol type: wine Drug use: Never Substance use type: does not use Details: alcohol: wine, t-2, 8 oz Caregiver/Support person: No Household members: spouse Housing: house Communication Needs: None Do you need help understanding health information?: Never current occupation: [employer] Pets and animals: Yes Pets and animals: cat(s) Sexually active: No Do you think of yourself as: straight/heterosexual Current gender identity: female What is your relationship status?: How often do you talk on the phone with friends or family?: three or more times per week How often do you get together with friends or relatives?: once per week How often do you attend shinto or mu-ism services?: 4 or more times per year Do you belong to any clubs or organized social groups?: yes Panel score (0-1 are the most socially isolated patients): 4 What type of physical activity do you participate in: walking Duration: 30-45 minutes/day Frequency: 5-6 times per week Lizabeth/Nondenominational: Scientology Special lziabeth needs: No Seatbelt use: always Helmet use: Yes Helmet use: always Drive intox or ride w/intox hearse driver: No Do you feel safe at home: Yes Do you feel safe in your relationship?: Yes Meds Allergies and Home Medications Allergies Allergy/AdvReac Type Severity Reaction Status Date / Time No Known Drug Allergies Allergy Verified 09/01/21 11:11 Home Medications Medication Instructions Recorded Confirmed Type tacrolimus 0.1 % topical ointment 1 applic TOPICAL BID PRN 08/05/20 09/01/21 History estradiol 1 vag ring VG [id number] #1 ea 09/05/20 09/01/21 Rx clobetasol 0.05 % topical ointment 1 applic TOPICAL DAILY PRN #60 g 02/27/21 09/01/21 Rx Exam Resp Effort & Inspection: normal respiratory effort Auscultation: clear to auscultation bilaterally Cardio Rate: regular rate Rhythm: regular rhythm Results Last Vital Signs Temp 36.8 C 09/01/21 11:14 Pulse 60 09/01/21 11:14 Resp 18 09/01/21 11:14 BP 127/65 09/01/21 11:14 Pulse Ox 99 09/01/21 11:14
[2021-09-01] MEDS: ceFAZolin 2 GM/50 ML BAG IVPB (11:51)
[2021-09-01] MEDS: Sodium Bicarbonate 50 MEQ/50 ML VIAL (11:55)
--- NOTE | 2021-09-01 12:01 | W.PM.DSUDISC ---
Discharge Plan Disposition Patient Disposition: HOME Condition: Good Discharge Details Reason For Visit: Right carpal tunnel syndrome Attending Provider: Miguel Sanders Primary Care Provider: Chante Telles Home Meds and New Rx's Prescriptions: New hydrocodone-acetaminophen 5-325 mg tablet 1 tab PO Q6H PRN (Reason: severe pain) Qty: 4 RF: 0 acetaminophen 500 mg tablet 500 mg PO Q6H PRN (Reason: pain) Qty: 60 RF: 2 ibuprofen 600 mg tablet 600 mg PO TID PRN (Reason: pain) Qty: 60 RF: 0 Continued clobetasol 0.05 % ointment 1 applic topical DAILY PRN (Reason: psoriasis) Qty: 60 RF: 4 tacrolimus 0.1 % ointment 1 applic topical BID PRNRF: 0 Estring 2 mg (7.5 mcg /24 hour) ring 1 vag ring VG [id number] Qty: 1 RF: 4 Discharge Instructions Stand Alone Forms: Marilyn Solis Tunnel Release Activity:: Elevate Remove Dressings/Wound Care:: 72 hours Shower/Bathe:: 72 hours Diet:: As Tolerated Discharge Orders Discharge Orders: Discharge Order (Routine); Ordered 09/01/21 Ordered By: Letty Mcfarland DS: Diagnosis Discharge Diagnosis (1) Right carpal tunnel syndrome: Status: Acute
[2021-09-01 12:10] VITALS: BP 117/74; PULSE 62; RESP 12; TEMP 36.6; O2SAT 98
[2021-09-01 12:14] VITALS: BMI 21.8
[2021-09-01 12:41] VITALS: BP 117/74; PULSE 55; RESP 12; TEMP 36.6; O2SAT 100
--- NOTE | 2021-09-01 12:47 | W.ANESPOSTOP ---
Postoperative Evaluation Date, Time and Location Date Performed: 09/01/21 Time Performed: 12:47 Patient Location: Day Surgery Unit Vital Signs Most Recent Imported Vital Signs: Most Recent Vital Signs Temp Pulse Resp BP Pulse Ox 36.6 C 55 L 12 117/74 100 09/01/21 12:41 09/01/21 12:41 09/01/21 12:41 09/01/21 12:41 09/01/21 12:41 Pain Score Most Recent Pain Score: Most Recent Pain Score Pain Level 0 09/01/21 12:41 Assessment Mental Status: Awake (Alert & Oriented to Patient Baseline) Airway and Respiratory Function: Patent airway with normal (patient baseline) respiratory exam Cardiovascular Function: Hemodynamically Stable Hydration Status: Adequately Hydrated Nausea & Vomiting: No Nausea or Vomiting Pain: Pt. Denies Any Pain Peripheral Nerve Block: Patient did not receive a nerve block
--- NOTE | 2021-09-01 21:47 | ROE_ITS ---
Date of service: 09/01/21 Time of Service: 12:47 Operative Note Operative Note DATE OF PROCEDURE: 09/01/21 PRE-OP DIAGNOSIS: Right Carpal Tunnel Syndrome POST-OP DIAGNOSIS: same PROCEDURE: Right Endoscopic Carpal Tunnel Release SURGEON: Miguel Sanders ANESTHESIA TYPE: General:No Airway Refer to Anesthesia Record ESTIMATED BLOOD LOSS: 0 PATHOLOGY: none sent TOURNIQUET TIME: 6 COMPLICATIONS: None Patient was transported to: same day Patient's condition: stable Indications: I have seen Roseanna in clinic for symptoms of carpal tunnel syndrome. The numbness, tingling, and pain limited function and followed after having a distal radius fracture which was treated nonoperatively. Clinical exam findings confirmed the diagnosis of carpal tunnel syndrome. Nonoperative measures such as bracing, time, activity modifications had been tried but disability and pain persisted. I discussed carpal tunnel release with the patient. I reviewed the risks of the procedure to include, but not limited to, bleeding, infection, pain, stiffness, incomplete release, damage to nerves or vessels, persistent numbness, recurrence. Despite these risks, the patient elected to proceed. Findings: There was tightened carpal tunnel. This was dilated and released successfully with the endoscopic with increased space within the tunnel. The antebrachial fascia was released proximally freeing the median nerve at the wrist. Procedure Description: Roseanna was greeted in the preoperative holding area where the correct side was identified and marked. The consent was reviewed with the patient and signed. The history and physical was updated. All questions were answered. Roseanna was taken back to the operating room. The patient was placed into the supine position on the operating room table with the right arm on an arm board. A nonsterile tourniquet was placed high onto the arm. All bony prominences were well padded. Prophylactic antibiotics in the form of Cefazolin were administered. The right arm was then prepped with Chloraprep and draped in a standard fashion with stockinette and extremity drape. A timeout to confirm correct identity, side and site, procedure, allergies, anesthesia, and medical concerns was performed. The surgical site was marked in the volar wrist creases in line with the radial border of the fourth ray. This area was anesthetized with approximately 6cc of 1% Lidocaine. The limb was then exsanguinated with an Esmarch. The skin was incised with a 15 blade, approximately 1cm. The skin only was cut and the deeper tissue was dissected bluntly with a tenotomy scissor, avoiding passing nerve and venous structures. The fascia was penetrated and opened bluntly. A two-prong skin hook was placed under this proximal fascial edge. A series of hamate finders were used to identify and dilate the carpal tunnel. Synovial elevator was used to free synovial attachments to the underside of the transverse carpal ligament. My thumb was kept in the palm to hattie the distal extent of the carpal tunnel and correctly position the hand. The Microaire endoscope was inserted without difficulty and without resistance. Excellent visualization showed horizontally running fibers of the transverse carpal l igament (TCL). The distal extent of the TCL was visualized and the end of the scope palpated with the thumb. The blade was elevated and withdrawn from distal to proximal. The TCL was split into two flaps. The endoscope was reinserted to confirm complete release and any remnant ligament was incised. The scope was withdrawn and the proximal aspect of the carpal tunnel was grossly inspected and appeared release with the median nerve visible. The antebrachial fascia at the level of the wrist was then freed from the overlying skin and then the underlying median nerve with blunt dissection. This was transected longitudinally for about 3cm proximal to the wrist incision. The wound was then irrigated with easy flow of irrigant distally and proximally. The incision was closed with a single 4-0 Nylon suture. The wound was dressed with Xeroform, Gauze, Kerlix and Perfecto. The tourniquet was deflated with the initial dressing and held with some pressure. Blood flow returned easily to all digits with capillary refill less than 2 seconds. The patient tolerated the procedure well and was returned to the Same Day Surgery area in a stable condition suffering no known complication.
== END 2021-09-01 13:31 | disposition home or self-care (01) ==
PROVIDERS: PCP Family Medicine; Visit Provider Student in an Organized Health Care Education/Training Program
PROC: 01N54ZZ Release Median Nerve, Percutaneous Endoscopic Approach (ICD-10-PCS; CPT 29848; principal; 2021-09-01 15:15)
DX: G56.01 Carpal tunnel syndrome, right upper limb (principal); D64.9 Anemia, unspecified
CPT/HCPCS: 29848; J0690; J2405

== ENCOUNTER → 2022-06-23 01:52 | Outpatient (CLI) | payer OTHER, SELFPAY ==
--- NOTE | 2022-06-23 08:05 | DI.MAMMO_ITS ---
Exam(s) MAMMO SCREENING EXAM: MAMMO SCREENING CLINICAL HISTORY: screening,z12.39. TECHNIQUE: Bilateral full field digital CC and MLO mammographic images were obtained with 3D tomosyn thesis and utilizing computer aided detection (CAD). COMPARISON: Prior mammograms were reviewed. FINDINGS: No significant change appearance and distribution of the fibroglandular tissue which is again noted t o be dense, this somewhat decreasing the sensitivity of the mammogram for finding hidden underlying l esions There are no new findings in the immediate vicinity biopsy marker clip in the lateral aspect of the r ight breast. There is a suggestion of 2 nodular densities located superiorly in the right breast. Largest measure s approximately 7 by 6 millimeters and located 4 cm in from the nipple. Spot compression view and ul trasound recommended. There are no other nodular densities seen in either breast. No malignant-appe aring microcalcification groups. No new architectural distortion or skin thickening-traction. IMPRESSION: Dense bilateral fibroglandular tissue. Suggestion of right breast nodules. Spot compression CC view s and ultrasound of the right breast recommended. BI-RADS Category 0 - Assessment Incomplete: Need additional imaging evaluation Breast Density - Category C - Heterogeneously dense Breast density Category C or D implies that the patient has dense breast tissue. Dense breast tissue can make it harder to find cancer on a mammogram. Dense breast tissue is also associated with an incr eased risk of breast cancer. This information about the result of the mammogram report was provided to the patient to raise their awareness. Use this report when you speak with the patient about their risks for breast cancer, which includes their family history. At that time, you may recommend additional screening tests (Ultrasoun d or MRI) as these tests may add significant information. A negative radiographic report should not delay biopsy if a dominant or clinically suspicious mass is present. Up to ten percent of cancers are not identified on mammography. A negative report may reinforce clinical impression. Adenosis and dense breasts may obscure an underlying neoplasm. False positive reports average 6 to 10%. Patient will receive a letter notifying them of these results.
== END ==
PROVIDERS: PCP Family Medicine; Visit Provider Family Medicine
DX: Z12.31 Encounter for screening mammogram for malignant neoplasm of breast (principal); R92.8 Other abnormal and inconclusive findings on diagnostic imaging of breast
CPT/HCPCS: 77063; 77067

== ENCOUNTER → 2022-06-30 02:57 | Outpatient (CLI) | payer OTHER, SELFPAY ==
--- NOTE | 2022-06-30 | DI.US_ITS ---
Exam(s) MG MAMMO SCREEN CALL BACK UNI US BREAST RT COMPLETE EXAM: MG MAMMO SCREEN CALL BACK UNI -RIGHT AND COMPLETE RIGHT BREAST ULTRASOUND CLINICAL HISTORY: F/U MAMMO, 2 NODULAR DENSITIS RT BREAST. TECHNIQUE: Unilateral spot mammographic images obtained with 3D tomosynthesisand utilizing computer aided detection (CAD). . Complete RIGHT breast Ultrasound was also performed, including all 4 quadrants, the retroareolar jimmy on, and the ipsilateral axilla. COMPARISON: Prior mammograms were reviewed. This additional imaging was performed due to findings described on the recent screening mammogram of 06/23/2022. FINDINGS: DIAGNOSTIC MAMMOGRAM: Additional mammographic views performed todayare somewhat equivocal for the presence of true nodules in the right breast.Proceeded with ultrasound. COMPLETE RUIZ BREAST ULTRASOUND: Ultrasound performed today reveals no evidence of solid or consistent lesions in all 4 quadrants of t he right breast. No mass in the retroareolar region. Scanning of the ipsilateral right axilla is ne gative for adenopathy.. IMPRESSION: 1. No masses evident in the right breast. Appropriate follow-up is repeat right breast MAMMOGRAM in 6 months time. The patient was informed of these findings and recommendations prior to leaving the department today. BI-RADS Category 3 - 6 month - Probably Benign Finding: Recommend follow-up mammography in 6 months Breast Density - Category C - Heterogeneously dense Breast density Category C or D implies that the patient has dense breast tissue. Dense breast tissue can make it harder to find cancer on a mammogram. Dense breast tissue is also associated with an incr eased risk of breast cancer. This information about the result of the mammogram report was provided to the patient to raise their awareness. Use this report when you speak with the patient about their risks for breast cancer, which includes their family history. At that time, you may recommend additional screening tests (Ultrasoun d or MRI) as these tests may add significant information. A negative radiographic report should not delay biopsy if a dominant or clinically suspicious mass is present. Up to ten percent of cancers are not identified on mammography. A negative report may reinforce clinical impression. Adenosis and dense breasts may obscure an underlying neoplasm. False positive reports average 6 to 10%. Patient will receive a letter notifying them of these results.
== END ==
PROVIDERS: PCP Family Medicine; Visit Provider Family Medicine
DX: Z12.31 Encounter for screening mammogram for malignant neoplasm of breast (principal); R92.8 Other abnormal and inconclusive findings on diagnostic imaging of breast; N64.59 Other signs and symptoms in breast
CPT/HCPCS: 76642; 77063; 77067

== ENCOUNTER 2023-01-08 00:01 | Outpatient (CLI) | payer OTHER, SELFPAY ==
--- NOTE | 2023-01-08 08:30 | DI.MAMMO_ITS ---
Exam(s) MAMMO DIAGNOSTIC UNI EXAM: MAMMO DIAGNOSTIC UNI CLINICAL HISTORY: 6 MO F/U, F/U ABNL MAMMO, R92.8. TECHNIQUE: Craniocaudal and mediolateral oblique Full Field Digital Mammography views of the right breast with Computer Aided Diagnosis followed by Tomosynthesis. COMPARISON: 2013 through 23 June 2022 FINDINGS: Mammography/Tomosynthesis: Masses/Architectural Distortion: None seen. Microcalcifictions: No suspicious pleomorphic-type are seen. Skin Thickening/Nipple Retraction: None. IMPRESSION: 1. No evidence of malignancy is noted. 2. Unless there is more urgent need, bilateral screening mammography is recommended in 6 months. 3. The findings were discussed with the patient on the date of the examination. BI-RADS Category 1 - Negative Breast Density - Category C - Heterogeneously dense Breast density category C or D implies that the patient has dense breast tissue. Dense breast tissue is very common and is not abnormal but dense breast tissue can make it harder to find cancer on a ma mmogram. Also, dense breast tissue may increase their breast cancer risk. This information about the result of the mammogram report was provided to the patient to raise their awareness. Use this report when you speak with the patient about their risks for breast cancer, which includes their family hist ory. At that time, you may recommend for more screening tests (Ultrasound or MRI) as they might be us eful based on their risk. A negative radiographic report should not delay biopsy if a dominant or clinically suspicious mass is present. Up to ten percent of cancers are not identified on mammography. A negative report may reinforce clinical impression. Adenosis and dense breasts may obscure an underlying neoplasm. False positive reports average 6 to 10%. Patient will receive a letter notifying them of these results.
== END 2023-01-08 00:21 ==
LOC: DI 00:02
PROVIDERS: PCP Family Medicine; Visit Provider Family Medicine
DX: R92.8 Other abnormal and inconclusive findings on diagnostic imaging of breast (principal)
CPT/HCPCS: 77061; 77065; G0279

== ENCOUNTER 2023-10-03 16:16 | Emergency (ER) | payer OTHER, SELFPAY ==
[2023-10-03 16:18] VITALS: BP 166/73; PULSE 58; TEMP 36.9; O2SAT 100
--- NOTE | 2023-10-03 16:30 | DI.RAD_ITS ---
Exam(s) XR SHOULDER LT COMPLETE 2+V EXAM: XR SHOULDER LT COMPLETE 2+V CLINICAL HISTORY: pain s/p fall. TECHNIQUE: 2D digital imaging was performed. COMPARISON: No exams were available for comparison FINDINGS: Four views. No evidence of glenohumeral joint dislocation. Subacromial space is not diminished. There is an angulated fracture did of the junction of the mid and lateral thirds of the clavicle. Th ere is no distraction of the AC joint. There is also a suggestion what is either a subtle fracture of the greater tuberosity or soft tissue calcification within the insertional aspect of the supraspinatus. IMPRESSION: Clavicle fracture. Greater tuberosity fracture versus is calcific rotator cuff tendinitis at the lev el the greater tuberosity. DATA REPOSITORY: RADIATION DOSE DELIVERED:
--- NOTE | 2023-10-03 16:30 | DI.RAD_ITS ---
Exam(s) XR CHEST 2V PA LATERAL EXAM: XR CHEST 2V PA LATERAL CLINICAL HISTORY: left sided anterior chest pain s/p fall. TECHNIQUE: 2D digital imaging was performed. COMPARISON: CR,XR XR RIBS LT PA CHEST 3V from 07/08/2019 FINDINGS: 2 views: There is an angulated fracture of the junction of the mid and lateral thirds of the left clavicle. Heart size is normal. The mediastinum is not widened. Lungs are clear. No infiltrates nor pleural effusions. IMPRESSION: No acute pulmonary findings.Left clavicle fracture noted. DATA REPOSITORY: RADIATION DOSE DELIVERED:
--- NOTE | 2023-10-03 16:35 | W.ED.GENAD ---
HPI General Mode of arrival: ambulatory. Date/Time Provider Initiated Documentation: 10/03/23 16:24. Limitations to Documentation: no limitations. Information obtained by: patient. History of Present Illness 68 year old F presents to the emergency department with the chief complaint of left shoulder pain s/p fall, described as moderate, Quality is described as aching, Patient reports no radiation. Patient started experiencing this hour(s) (1) and it has been constant. Rest improves symptom(s), Movement worsens symptoms . Patient notes denies shortness of breath and syncope. Patient did receive the following treatments prior to arrival, NSAID Related Data Home Medications Medication Instructions Recorded Confirmed tacrolimus 0.1 % topical ointment 1 applic topical BID PRN 08/05/20 10/03/23 clobetasol 0.05 % topical ointment 1 applic topical DAILY PRN 02/27/21 10/03/23 psoriasis #60 grams acetaminophen 500 mg tablet 500 mg PO Q6H PRN pain #60 tabs 09/01/21 10/03/23 ibuprofen 600 mg tablet 600 mg PO TID PRN pain #60 tabs 09/01/21 10/03/23 meloxicam 15 mg tablet 15 mg PO DAILY #90 tabs 08/25/23 10/03/23 estradiol 10 mcg vaginal tablet 10 mcg vaginal .3 times weekly #36 09/02/23 10/03/23 (Yuvafem) tabs Previous Rx's Medication Instructions Recorded clobetasol 0.05 % topical ointment 1 applic topical DAILY PRN 02/27/21 psoriasis #60 grams acetaminophen 500 mg tablet 500 mg PO Q6H PRN pain #60 tabs 09/01/21 ibuprofen 600 mg tablet 600 mg PO TID PRN pain #60 tabs 09/01/21 meloxicam 15 mg tablet 15 mg PO DAILY #90 tabs 08/25/23 estradiol 10 mcg vaginal tablet 10 mcg vaginal .3 times weekly #36 09/02/23 (Yuvafem) tabs Allergies Allergy/AdvReac Type Severity Reaction Status Date / Time No Known Drug Allergies Allergy Verified 10/03/23 16:22 General Stated Complaint: Orthopedic MARILYN: 4 Review of Systems All systems reviewed & are unremarkable except as noted in HPI and below Constitutional Constitutional: Denies chills, Denies fever(s) and Denies weakness Eyes Eyes: Denies loss of vision Cardiovascular Cardiovascular: Denies chest pain and Denies dyspnea Respiratory Respiratory: Denies cough and Denies dyspnea Gastrointestinal Gastrointestinal: Denies abdominal pain, Denies nausea and Denies vomiting Integumentary/Breasts Skin/Breast: Denies rash Neurologic Neurologic: Denies loss of vision and Denies weakness Exam Const General: no acute distress Orientation: alert [facility] Head: normal to inspection Ears: external ears normal General nose exam: external nose normal Mouth: moist mucous membranes Eyes General: appearance normal, both eyes and all related structures Neck Neck: normal visual inspection, full ROM, trachea midline and nontender Chest Chest: normal inspection of the chest and no crepitus Resp Effort & Inspection: normal respiratory effort and able to speak in complete sentences Auscultation: clear to auscultation bilaterally Cardio Rate: regular rate Back/Spine/Pelvis Thoracic/Lumbar Spine: No thoracic spinal tenderness and No lumbar spinal tenderness Skin General skin exam: no rashes or lesions noted Neuro General: patient alert and patient oriented x3 Extrem General: normal to inspection and capillary refill normal Psych Mental Status: mental status grossly normal Course Vital Signs Vital signs: Vital Signs Temperature 36.9 C 10/03/23 16:18 Pulse 58 L 10/03/23 16:18 Blood Pressure 166/73 H 10/03/23 16:18 Pulse Oximetry 100 10/03/23 16:18 Temperature 36.9 C 10/03/23 16:18 Temperature Source Temporal Artery Scan 10/03/23 16:18 Pulse 58 L 10/03/23 16:18 Blood Pressure 166/73 H 10/03/23 16:18 Blood Pressure Position Sitting 10/03/23 16:18 Pulse Oximetry 100 10/03/23 16:18 Oxygen Delivery Method Room Air 10/03/23 16:18 Oxygen Flow Rate 0 10/03/23 16:18 Pain Level 3 10/03/23 16:18 Medical Decision Making 68 yo femalecomes in with left shoulder pain. She states she was cross country skiing and fell while making a turn and landed on her left shoulder. Denies preceding symptoms to the fall. She did not hit her head, denies head pain, neck pain, back pain, abdominal pain. She is caox4 on arrival with normal gait, no signs of trauma to the head, perrl, no midline c/t/l spine tenderness and full rom of her neck, no abdominal tenderness. She has anterior left shoulder and tenderness on the anterior 2-3 ribs in the lateral clavicular line. She can abduct the shoulder to about 90 degrees then limited by pain. She has intact distal sensation and pulses and no tenderness elsewhere in the arm. Suspect contusion, will obtain xrays to eval for fracture/dislocation xrays show left clavicle fracture, will place in sling and have her f/u with ortho, stable exam, no new pain or tenderness elsewhere. Return precautions given Differential Diagnosis Differential Diagnosis: fracture, dislocation, sprain, strain Imaging Data Radiologic Study: Attestation: I personally reviewed and interpreted this imaging study as follows: Imaging: CT Scan Radiologist's impression: Exam(s) XR CHEST 2V PA LATERAL EXAM: XR CHEST 2V PA LATERAL CLINICAL HISTORY: left sided anterior chest pain s/p fall. TECHNIQUE: 2D digital imaging was performed. COMPARISON: CR,XR XR RIBS LT PA CHEST 3V from 07/08/2019 FINDINGS: 2 views: There is an angulated fracture of the junction of the mid and lateral thirds of the left clavicle. Heart size is normal. The mediastinum is not widened. Lungs are clear. No infiltrates nor pleural effusions. IMPRESSION: No acute pulmonary findings.Left clavicle fracture noted. Radiologic Study #2: Attestation: I personally reviewed and interpreted this imaging study as follows: Imaging: X-Ray My impression: clavicle fracture on shoulder xray Radiologic Study #3: Attestation: I personally reviewed and interpreted this imaging study as follows: Imaging: X-Ray My impression: clavicle fx on clavicle xray Quality:SDOH Health Related Social Needs: No Data to Display PFSH All Active Problems (Updated 10/03/23 @ 17:24 by Santo Mosqueda MD) Closed fracture of left clavicle (Acute) Abnormal mammogram (Acute) Hyperplastic colon polyp (Acute) Annual physical exam (Acute 12/19/15) Onychomycosis (Chronic) Numbness and tingling in both hands (Acute) Numbness in feet (Acute) Neuropathy (Acute) 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 pt. states it is non exisitent anymore Hyperplastic colon polyp Shoulder pain 07/29/03 left shoulder bursitis Surgical History Appendectomy (~11/2007) pt. 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 Paternal Grandmother Breast cancer Brother Essential hypertension Depression Alcohol abuse Brother Hypertension Son No problems noted. Son Alcohol abuse Social History Smoking/Tobacco Use Status: Never Second Hand Exposure: No Smoking risk assessment performed?: Yes Alcohol Intake: current Alcohol Intake frequency: a few times a week Alcohol type: wine Drug use: Never Substance use type: does not use Details: alcohol: wine, t-2, 8 oz Caregiver/Support person: No Household members: spouse Housing: house Communication Needs: None Do you need help understanding health information?: Never current occupation: [employer] Pets and animals: Yes Pets and animals: cat(s) Sexually active: No Do you think of yourself as: straight/heterosexual Current gender identity: female What is your relationship status?: How often do you talk on the phone with friends or family?: three or more times per week How often do you get together with friends or relatives?: once per week How often do you attend confucianist or mandaeism services?: 4 or more times per year Do you belong to any clubs or organized social groups?: yes Panel score (0-1 are the most socially isolated patients): 4 What type of physical activity do you participate in: walking Duration: 30-45 minutes/day Frequency: 5-6 times per week Lizabeth/Holiness: Gnosticist Special lizabeth needs: No Seatbelt use: always Helmet use: Yes Helmet use: always Drive intox or ride w/intox dinkey driver: No Do you feel safe at home: Yes Do you feel safe in your relationship?: Yes Discharge Plan Disposition Patient Disposition: Home Condition: Stable Discharge Details Clinical Impression: Closed fracture of left clavicle Primary Care Provider: Chante Telles ED Provider: Santo Mosqueda [place] Meds and New Rx's Prescriptions: Continued clobetasol 0.05 % ointment 1 applic topical DAILY PRN (Reason: psoriasis) Qty: 60 4RF meloxicam 15 mg tablet 15 mg PO DAILY Qty: 90 3RF tacrolimus 0.1 % ointment 1 applic topical BID PRN estradiol [Yuvafem] 10 mcg tablet 10 mcg vaginal .3 times weekly Qty: 36 4RF acetaminophen 500 mg tablet 500 mg PO Q6H PRN (Reason: pain) Qty: 60 2RF ibuprofen 600 mg tablet 600 mg PO TID PRN (Reason: pain) Qty: 60 0RF Discharge Instructions Instructions: Clavicle Fracture (ED) Additional Instructions: call orthopedics to arrange follow up if you develop severe worsening pain or new symptoms such as neck pain or difficulty breathing return to the emergency department Referrals: Miguel Sanders MD [ [facility] STAFF PHYSICIAN] -
--- NOTE | 2023-10-03 16:53 | DI.VRAD_ITS ---
Addendum created by Murphy Mixon MD on 10/03/2023 5:01:28 PM EST: Addendum: Fracture of the distal 3rd of the left clavicle. Mild inferior displacement and angulation of the distal fracture fragment. Initial report created on 10/03/2023 4:53:19 PM EST: PROCEDURE INFORMATION: Exam: XR Chest Exam date and time: 10/03/2023 4:46 PM Age: 68 years old Clinical indication: Other: Left sided anterior chest pain S/P fall TECHNIQUE: Imaging protocol: Radiologic exam of the chest. Views: 2 views. COMPARISON: CR XR RIBS LT PA CHEST 3V 07/08/2019 4:58 PM FINDINGS: Lungs: No consolidation. No Mass Pleural spaces: No pleural effusion. No pneumothorax. Heart/Mediastinum: Unremarkable Bones/joints: No displaced rib fractures or other acute bone findings. IMPRESSION: No acute findings Dictated and Authenticated by: Murphy Mixon MD. Ordering:BERE Blanchard MD
--- NOTE | 2023-10-03 17:03 | DI.VRAD_ITS ---
PROCEDURE INFORMATION: Exam: XR Left Shoulder Exam date and time: 10/03/2023 4:49 PM Age: 68 years old Clinical indication: Other: Pain S/P fall TECHNIQUE: Imaging protocol: Radiologic exam of the left shoulder. Views: 2 or more views. COMPARISON: CR XR CHEST 2V PA LATERAL 10/03/2023 4:46 PM FINDINGS: Bones/joints: Fracture of the distal 3rd of the left clavicle. Proximally 1/4 shaft width inferior displacement and angulation of the distal fracture fragment. No dislocation. Joint spaces are unremarkable. Soft tissues: No significant abnormality IMPRESSION: Left clavicular fracture as described Dictated and Authenticated by: Murphy Mixon MD. Ordering:BERE Blanchard MD
--- NOTE | 2023-10-03 17:51 | DI.RAD_ITS ---
Exam(s) XR CLAVICLE LT EXAM: XR CLAVICLE LT CLINICAL HISTORY: fracture. TECHNIQUE: 2D digital imaging was performed. COMPARISON: No exams were available for comparison FINDINGS: Two views. There is an acute fracture at junction of mid and lateral thirds of the clavicle with significant dis placement. No dislocation of the AC joint. Also noted is calcific rotator cuff tendinitis with a chunk of calcium seen in the soft tissues immed iately adjacent to the greater tuberosity of the humeral head IMPRESSION: Acute displaced fracture of the clavicle. Calcific rotator cuff tendinitis incidentally noted. DATA REPOSITORY: RADIATION DOSE DELIVERED:
--- NOTE | 2023-10-03 18:05 | DI.VRAD_ITS ---
PROCEDURE INFORMATION: Exam: XR Left Clavicle, Complete Exam date and time: 10/03/2023 5:44 PM Age: 68 years old Clinical indication: Abnormal findings; Abnormal imaging study of the limbs; Chest and left shoulder; Patient HX: Fracture to left clavicle TECHNIQUE: Imaging protocol: Radiologic exam of the left clavicle. Complete exam. Views: Any number of views. COMPARISON: CR XR SHOULDER LT COMPLETE 2+V 10/03/2023 4:49 PM FINDINGS: Bones/joints: Two views of the left clavicle demonstrate fracture of the mid to distal 3rd of the clavicle. Inferior displacement of the distal fracture fragment. Mild cephalad angulation of the apex of the fracture. Soft tissues: No significant abnormality IMPRESSION: Left clavicular fracture as described Dictated and Authenticated by: Murphy Mixon MD. Ordering:BERE Blanchard MD
== END 2023-10-03 18:03 | disposition home or self-care (01) ==
PROVIDERS: Emergency Provider Emergency Medicine; PCP Family Medicine
DX: S42.022A Displaced fracture of shaft of left clavicle, initial encounter for closed fracture (principal); M75.32 Calcific tendinitis of left shoulder; W00.0XXA Fall on same level due to ice and snow, initial encounter; Y93.24 Activity, cross country skiing; Y92.838 Other recreation area as the place of occurrence of the external cause
CPT/HCPCS: 99283; 71046; 73000; 73030

== ENCOUNTER 2023-10-19 15:44 | Outpatient (CLI) | payer OTHER, SELFPAY ==
--- NOTE | 2023-10-19 08:30 | DI.RAD_ITS ---
Exam(s) XR CLAVICLE LT EXAM: XR CLAVICLE LT CLINICAL HISTORY: F/U FRACTURE. TECHNIQUE: 2D digital imaging was performed. COMPARISON: CR,XR XR CLAVICLE LT from 10/03/2023 FINDINGS: Two views. Again noted is the displaced overriding left clavicle fracture at junction of the mid and lateral thi rds, appearing unchanged. AC joint is not distracted. Again noted are calcifications in the soft tissues just above the greater tuberosity of the humeral h ead consistent with calcific rotator cuff tendinitis. IMPRESSION: Displaced left clavicle fracture appears unchanged from 10/03/2023. Calcific rotator cuff tendinitis/bursitis again noted. DATA REPOSITORY: RADIATION DOSE DELIVERED:
== END 2023-10-19 15:45 | disposition home or self-care (01) ==
LOC: DIORS 15:44
PROVIDERS: PCP Family Medicine; Visit Provider Student in an Organized Health Care Education/Training Program
DX: S42.032D Displaced fracture of lateral end of left clavicle, subsequent encounter for fracture with routine healing (principal); X58.XXXD Exposure to other specified factors, subsequent encounter
CPT/HCPCS: 73000

== ENCOUNTER 2023-11-23 15:34 | Outpatient (CLI) | payer OTHER, SELFPAY ==
--- NOTE | 2023-11-23 11:15 | DI.RAD_ITS ---
Exam(s) XR CLAVICLE LT EXAM: XR CLAVICLE LT CLINICAL HISTORY: F/U FRACTURE TECHNIQUE: 2D digital imaging was performed of the left clavicle. Two images were obtained. AP and axial views were obtained. COMPARISON: CR XR CLAVICLE LT from 10/19/2023 FINDINGS: BONES: There has been no change in alignment of the fracture of the left clavicle. There has develop ed some increased callus formation about the fracture suggesting interval healing. No new fracture i s seen. No bony destructive lesion is seen. JOINTS: The acromioclavicular joint is intact. SOFT TISSUE: There is soft tissue calcifications adjacent to the greater tuberosity consistent with c alcific tendinitis. The visualized lungs are clear. IMPRESSION: Stable alignment of the left clavicular fracture. DATA REPOSITORY: RADIATION DOSE DELIVERED:
== END 2023-11-23 15:35 | disposition home or self-care (01) ==
LOC: DIORS 15:34
PROVIDERS: PCP Family Medicine; Visit Provider Student in an Organized Health Care Education/Training Program
DX: S42.032D Displaced fracture of lateral end of left clavicle, subsequent encounter for fracture with routine healing (principal); X58.XXXD Exposure to other specified factors, subsequent encounter
CPT/HCPCS: 73000

== ENCOUNTER 2023-12-07 07:33 | Outpatient (CLI) | payer OTHER, SELFPAY ==
--- NOTE | 2023-12-07 07:30 | RT.EKG_ITS ---
APPROVED REPORT Exam: Resting ECG Reason for Exam: chest pain Patient Location: O HR:63 bpm ECG Measurements Heart Rate 63 AXIS NC 190 P 54 QRSd 93 QRS -65 QT 422 T 63 QTc 433 Conclusion Sinus rhythm...normal P axis, V-rate 50- 99 Left anterior fascicular block...axis(240,-40), init forces inf Probable left ventricular hypertrophy...(RaVL+SV3)xQRSd >300
== END 2023-12-07 07:34 | disposition home or self-care (01) ==
LOC: DI.CM 07:33
PROVIDERS: PCP Family Medicine; Visit Provider Family Medicine
DX: R07.9 Chest pain, unspecified (principal)
CPT/HCPCS: 93010

== ENCOUNTER 2023-12-08 05:44 | Outpatient (CLI) | payer OTHER, SELFPAY ==
[2023-12-08 12:37] LABS: HCT 38.9 % (36.0-46.0); HGB 12.1 g/dL (11.2-15.7); MCH 26.7 pg (27.0-33.0); MCHC 31.1 % (32.0-36.0); MCV 86 fL (80-95); MPV 10.6 fL (8.0-11.0); Platelet Count 200 10^3/uL (130-400); RBC 4.54 10^6/uL (3.93-5.22); RDW 18.6 % (11.7-14.6); RDW-SD 58.2 fL; WBC 3.44 10^3/uL (4.4-10.8)
[2023-12-08 14:41] LABS: ALT 27 U/L (14-59); AST 23 U/L (15-37); Albumin 3.5 g/dL (3.4-5.0); Alkaline Phosphatase 55 U/L (46-116); Anion Gap 9.3 mmol/L (3-11); BUN 24 mg/dL (7-18); Bilirubin, Total 0.7 mg/dL (0.2-1.0); CO2 27.7 mmol/L (21.0-32.0); CREATININE 0.8 mg/dL (0.55-1.02); Calcium 9.1 mg/dL (8.5-10.1); Calculated LDL 145 mg/dL (<100); Chloride 108 mmol/L (98-107); Cholesterol 245 mg/dL (<200); Estimated GFR 80.21 (mL/min/1.73m2); Glucose 94 mg/dL (74-106); HDL Cholesterol 93 mg/dL (40-60); Potassium 4.9 mmol/L (3.5-5.1); Sodium 145 mmol/L (136-145); TSH (W/Ref FT4) 1.56 uIU/mL (0.36-3.74); Total Protein 6.7 g/dL (6.4-8.2); Triglyceride 36 mg/dL (<150)
== END 2023-12-08 05:45 | disposition home or self-care (01) ==
LOC: LOS 05:44
PROVIDERS: PCP Family Medicine; Visit Provider Family Medicine
DX: I10 Essential (primary) hypertension (principal); R07.9 Chest pain, unspecified; E03.9 Hypothyroidism, unspecified; E11.9 Type 2 diabetes mellitus without complications
CPT/HCPCS: 36415; 80053; 80061; 85027; 83036; 84443

== ENCOUNTER 2023-12-27 15:19 | Outpatient (CLI) | payer OTHER, SELFPAY ==
--- NOTE | 2023-12-27 10:00 | DI.RAD_ITS ---
Exam(s) XR KNEE LT 4V AP,LAT,ISIAH,PAT EXAM: XR KNEE LT 4V AP,LAT,ISIAH,PAT CLINICAL HISTORY: LEFT KNEE PAIN. TECHNIQUE: 2D digital imaging was performed of the left knee. Four images were obtained. Merchant, AP, lateral and PA tunnel views were obtained. COMPARISON: No priors for comparison. FINDINGS: BONES: No acute fracture is present. No bony destructive lesion is seen. There is a large subchondra l cyst in the proximal tibia. JOINTS: There is marked narrowing of the medial femoral tibial joint. Osteophytes are seen in the me dial femoral tibial and patellofemoral joints. No joint effusion is seen. No loose body. SOFT TISSUE: Normal. IMPRESSION: Moderately severe degenerative changes of the left knee. DATA REPOSITORY: RADIATION DOSE DELIVERED:
== END 2023-12-27 15:20 | disposition home or self-care (01) ==
LOC: DIORS 15:19
PROVIDERS: PCP Family Medicine; Visit Provider Physician Assistant
DX: M25.562 Pain in left knee (principal)
CPT/HCPCS: 73564

== ENCOUNTER → 2023-12-29 04:39 | Outpatient (CLI) | payer OTHER, SELFPAY ==
--- NOTE | 2023-12-29 07:30 | DI.US_ITS ---
APPROVED REPORT EXAM: Comprehensive 2D, Doppler, and color-flow Echocardiogram Patient Location: Out-Patient Supervisor Production: Nunu Osullivan RDCS (AE) Indications: L ant fasicular block, Chest pain, Abnormal EKG Other Information Study Quality: Adequate Conclusion Normal left ventricular wall thickness and chamber size. Ejection fraction is 60%. Wall motion is n ormal Normal right ventricular size and function Both atria are normal in size. There is an incidental finding of an atrial septal aneurysm Trileaflet aortic valve with mild regurgitation There is late systolic mitral valve prolapse with trace to mild regurgitation Trace to mild tricuspid regurgitation. Estimated right ventricular systolic pressure is 19 mmHg Borderline dilated ascending aorta 3.36 cm Wall motion Left Ventricle The left ventricle is normal size. The left ventricular systolic function is normal. The left ventric ular ejection fraction is within the normal range. There is normal left ventricular wall thickness. T here is normal LV segmental wall motion. There is no ventricular septal defect visualized. LVEF is 60 %. Right Ventricle The right ventricle is normal size. The right ventricular systolic function is normal. Atria The left atrium size is normal. The right atrium size is normal. Atrial septal aneurysm is present. Aortic Valve The aortic valve is normal in structure. Aortic valve is trileaflet. There is no aortic valvular sten osis. Mild aortic regurgitation. Mitral Valve The mitral valve is normal in structure. No evidence of mitral valve stenosis. Trace to mild mitral r egurgitation. Late systolic mitral valve prolapse. Tricuspid Valve The tricuspid valve is normal in structure. There is no tricuspid valve stenosis. Trace to mild tricu spid regurgitation. The RVSP is 19.1 mmHg. Pulmonic Valve The pulmonary valve is normal in structure. There is no pulmonic valvular stenosis. Trace pulmonic re gurgitation. Great Vessels The aortic root is normal in size. The ascending aorta is mildly dilated. Aortic arch is not well vis ualized. IVC is normal in size and collapses >50% with inspiration. Pericardium There is no pericardial effusion. 2D Dimensions IVSD d PLAX 0.89 cm F: 0.6-1.0 Ao Root d 3.07 cm F: 2.7 - 3.3 LVPW d PLAX 0.90 cm F: 0.6 - 1.0 Ao Asc Diam d 3.36 cm F: 2.3 - 3.1 LVID d PLAX 4.43 cm F: 3.8 - 5.2 LVDs 3.04 cm F: 2.2 - 3.5 LV EF Teichholz 59.3 % FS 31.31 % LV EDV (Teich) 88.9 mL LV ESV (Teich) 36.1 mL M-Mode TAPSE 2.69 cm (M/F) >1.7 Auto EF LV EDV A4C 87.4 mL LV EDV A2C 113.0 mL LV EDV BP 101.4 mL LV ESV A4C 35.9 mL LV ESV A2C 47.6 mL LV ESV BP 41.2 mL LVEF(%) A4C 58.9 % LVEF(%) A2C 57.8 % LVEF(%) BP 59.3 % LV SV A4C 51.5 ml LV SV A2C 65.3 ml LV SV BP 60.2 ml LV CO A4C 2.8 L/min LV CO A2C 3.6 L/min LV CO BP 3.2 L/min HR A4C 55.22 BPM HR A2C 54.55 BPM LV EDV Index (BP) LA Volume LA Length A4C 4.2 cm LA Length A2C 5.3 cm LA Area A4C s 13.17 cm2 LA Area A2C s 17.89 cm2 LA Vol A4C A-L 35.26 mL LA Vol A2C A-L 51.55 mL LA Vol Biplane A-L 47.9 mL LA Vol/BSA A4C A-L LA Vol/BSA A2C A-L LA Vol/BSA BP A-L 30.1 mL/m2 LA Vol A4C MOD 33.6 mL LA Vol A2C MOD 45.9 mL LA Vol BP MOD 43.4 mL RA Volume RA Area A4C 11.4 cm2 RA ESV A4C (A-L) 26.0mL RA Vol/BSA A4C A-L RA Length A4C 4.3 cm RA ESV A4C (MOD) 24.5mL LV Diastology MV E' medial 0.056 (>0.07 m/s) MV E Vmax 0.66 (0.4-1.3 m/s) MV E/E' MED 11.78 (<14) MV A Vmax 0.75 (0.4-1.3 m/s) MV E' lateral 0.082 (>0.1 m/s) E/A Ratio 0.9 MV E/E' LAT 8.05 (<14) MV E' Average 0.069 m/s MV E/E'(average) 9.56 Aortic Valve AoV Vmax 1.27 m/s LVOT Vmax 1.05 m/s AoV Peak Grad 47.4 mmHg LVOT Peak Grad 4.4 mmHg AoV Area (Vmax) 2.84 cm2 LVOT VTI 0.243 m AoV VTI 0.298 m LVOT Mean Grad 2.1 mmHg AoV Mean Bret. 0.82 m/s LVOT SV 83.13 mL AoV Mean Grad 3.2 mmHg LVOT Diam s 2.05 cm AoV Area (VTI) 2.79 cm2 AV Regurg Peak Gr. 88.30 mmHg Velocity Ratio 0.83 AR Decel [place] 1.5m/sec2 AR DT 3137 msec AR PHT 910 msec AR Vmax 4.70 m/s Mitral Valve MV DT 210 (160-240 msec) MV Vmax TIPS 0.74 m/s MV Mean Grad 0.9 (<2mmHg) MV VTI 0.279 m Pulmonary Valve PV Vmax 0.73 (0.5-1.5 m/s) RVOT Vmax 0.73 m/s PV Peak Grad 2.1 mmHg RVOT Peak Gr. 2.1 mmHg PV Mean Bret 0.53 m/s RVOT VTI 0.149 m PV Mean Grad 1.3 mmHg RVOT Mean Gr. 1.2 mmHg Tricuspid Valve RA Pressure 3.00 mmHg TR Vmax 2.00 m/s TV S' 0.16 m/s TR Peak Grad 16.0 mmHg RVSP (TR) 19.1 mmHg
== END ==
PROVIDERS: PCP Family Medicine; Visit Provider Family Medicine
DX: R07.9 Chest pain, unspecified (principal); R94.31 Abnormal electrocardiogram [ECG] [EKG]; I44.4 Left anterior fascicular block; I35.1 Nonrheumatic aortic (valve) insufficiency; I34.1 Nonrheumatic mitral (valve) prolapse
CPT/HCPCS: 93306

== ENCOUNTER 2024-01-04 15:40 | Outpatient (CLI) | payer OTHER, SELFPAY ==
--- NOTE | 2024-01-04 09:45 | DI.RAD_ITS ---
Exam(s) XR CLAVICLE LT EXAM: XR CLAVICLE LT CLINICAL HISTORY: evaluation of fracture TECHNIQUE: 2D digital imaging was performed of the left clavicle. Two images were obtained. AP and axial views were obtained. COMPARISON: CR XR CLAVICLE LT from 11/23/2023 FINDINGS: BONES: There is no significant change in alignment of the left clavicular fracture. There is some in creased callus formation about the fracture site compared to the prior examination. No new fracture is seen. No bony destructive lesion is seen. JOINTS: No dislocation present. SOFT TISSUE: Normal. IMPRESSION: Stable alignment of the left clavicular fracture with a question of mild increased callus formation a bout the fracture site. DATA REPOSITORY: RADIATION DOSE DELIVERED:
== END 2024-01-04 15:41 | disposition home or self-care (01) ==
LOC: DIORS 15:40
PROVIDERS: PCP Family Medicine; Visit Provider Student in an Organized Health Care Education/Training Program
DX: S42.022D Displaced fracture of shaft of left clavicle, subsequent encounter for fracture with routine healing (principal); X58.XXXD Exposure to other specified factors, subsequent encounter
CPT/HCPCS: 73000

== ENCOUNTER 2024-01-13 14:00 | Outpatient (CLI) | payer OTHER, SELFPAY ==
--- NOTE | 2024-01-13 14:00 | RT.EKG_ITS ---
APPROVED REPORT Exam: Resting ECG Reason for Exam: baseline Patient Location: O HR:69 bpm ECG Measurements Heart Rate 69 AXIS CA 174 P 78 QRSd 85 QRS -71 QT 374 T 64 QTc 401 Conclusion Sinus rhythm...normal P axis, V-rate 50- 99 Left anterior fascicular block...axis(240,-40), init forces inf
== END 2024-01-13 14:01 | disposition home or self-care (01) ==
LOC: DI.CARD 14:01
PROVIDERS: PCP Family Medicine; Visit Provider Internal Medicine Cardiovascular Disease
DX: I25.3 Aneurysm of heart (principal)
CPT/HCPCS: 93010

== ENCOUNTER → 2024-01-19 04:48 | Outpatient (CLI) | payer OTHER, SELFPAY ==
--- NOTE | 2024-01-19 08:25 | DI.MRI_ITS ---
Exam(s) MR LOWER JOINT LT WO EXAM: MR LOWER JOINT LT WO CLINICAL HISTORY: surgical planning,BONE CYST LT TIBIA,M85.662 TECHNIQUE: Multiplanar multisequence MRI of the knee was performed. COMPARISON: CR XR KNEE LT 4V AP,LAT,ISIAH,PAT from 12/27/2023 FINDINGS: EFFUSION: There is a moderate size knee joint effusion. There is also a nonruptured septated hidalgo c yst in the medial popliteal fossa which measures 3.6 cm craniocaudal length by 1 cm AP by 0.5 cm wide . MARROW:There is a prominent degenerative subarticular cyst in the posterior aspect of the tibial plat eau corresponding to what is seen on recent plain films and located immediately subjacent to the tibi al insertion of the posterior cruciate ligament. This benign cysts measures 1.9 cm AP by 1.8 cm wide by 1.5 cm craniocaudal. It exhibits some internal septations and some mild surrounding bone edema. Nevertheless, this is a benign appearing nonexpansile degenerative subarticular cyst. There is also subarticular bone edema in the medial femoral condyle and medial tibial plateau related to advanced degenerative changes (see below) PATELLOFEMORAL COMPARTMENT: The quadriceps tendon is intact. The patellar ligament is intact. There is non uniform thinning of the retropatellar cartilage, this being more prominent over the late ral than the medial facet, judged as moderate. There is no evidence of degenerative subarticular cys ts in the subarticular posterior patella and no osteochondral defects at this level.There is no intra osseous signal to suggest recent patellar dislocation. There are no patellar retinacular tears. CRUCIATE LIGAMENTS: The anterior cruciate ligament is intact.The posterior cruciate ligament is intac t. MEDIAL COMPARTMENT/MEDIAL MENISCUS: There is signal abnormality throughout the entire posterior horn of the medial meniscus, including the root. There is some complex tearing this structure. There is also signal abnormality within the anterior horn consistent with tearing and also an element of mild extrusion of the anterior horn. There is full-thickness articular cartilage loss in the medial toy rtment over the main weight-bearing surfaces and there also marginal osteophytes off both the medial condyle and the medial tibial plateau.. MEDIAL COLLATERAL LIGAMENT: Mild attenuation signal abnormality but no high-grade tear of the MCL LATERAL COMPARTMENT/LATERAL MENISCUS: The lateral meniscus is intact with no evidence of significant intrasubstance signal abnormality nor tears.There is relative preservation of the articular cartilage over the lateral femoral condyle and no evidence of subarticular bone edema in the lateral femoral c ondyle. There is mild edema in the lateral tibial plateau which appears to be related to a 2nd small er developing sub chondral cyst in the inner aspect of the lateral tibial plateau.There are small mar ginal osteophytes off the lateral compartment. ILIOTIBIAL BAND: Intact LATERAL COLLATERAL LIGAMENT COMPLEX: The fibular collateral ligament is intact. The biceps femoris t endon is intact.Popliteus muscle and tendon are intact. IMPRESSION: 1. There are advanced osteoarthritic degenerative changes in the medial compartment of the knee as de scribed above and there is also signal abnormality throughout both horns of the medial meniscus with tearing and mild extrusion of the anterior horn of the medial meniscus and advanced degenerative canchola ge throughout the substance of the posterior horn although difficult to isolate and exact tear in the posterior horn (as opposed to diffuse advanced intrasubstance myxoid degenerative signal) there are no tears of the lateral meniscus and significantly less degenerative change in the lateral compartmen t. 2. There are no tears of the cruciate and collateral ligaments. 3. There is a large benign internally septated degenerative subarticular cyst in the posterior aspect of the tibial plateau subjacent to the insertion site of the (intact) posterior cruciate ligament. This is a common place for this occurrence. This cyst measures 19 x 18 x 15 mm and exhibits some migel rounding bone edema. Nevertheless this is a benign cyst. 4. There is moderate chondromalacia patella, most evident over the lateral aspect of the patellofemor al compartment. 5. There is a moderate-large knee joint effusion. There is a Hidalgo cyst in the medial popliteal fos sa which exhibits internal septations but no loose intra-articular bodies. This Hidalgo cyst is not ru ptured. DATA REPOSITORY:
== END ==
PROVIDERS: PCP Family Medicine; Visit Provider Student in an Organized Health Care Education/Training Program
DX: M85.662 Other cyst of bone, left lower leg (principal); M17.12 Unilateral primary osteoarthritis, left knee
CPT/HCPCS: 73721

== ENCOUNTER 2024-03-28 11:52 | Outpatient (CLI) | payer OTHER, SELFPAY ==
--- NOTE | 2024-03-28 11:00 | DI.RAD_ITS ---
Exam(s) XR CLAVICLE LT EXAM: XR CLAVICLE LT INDICATION: F/U FRACTURE. COMPARISON: CR XR CLAVICLE LT from 01/04/2024 TECHNIQUE: 2D digital imaging was performed. Two views. FINDINGS: No change in alignment of distal clavicle fracture. Increased callus formation around the fracture s ite. No new abnormalities. DATA REPOSITORY: RADIATION DOSE DELIVERED:
== END 2024-03-28 11:53 | disposition home or self-care (01) ==
LOC: DIORS 11:53
PROVIDERS: PCP Family Medicine; Visit Provider Student in an Organized Health Care Education/Training Program
DX: S42.002A Fracture of unspecified part of left clavicle, initial encounter for closed fracture (principal)
CPT/HCPCS: 73000

== ENCOUNTER 2024-04-17 15:50 | Outpatient (CLI) | payer OTHER, SELFPAY ==
--- NOTE | 2024-04-17 10:11 | DI.RAD_ITS ---
Exam(s) XR KNEE LT 1V XR STANDING ALIGNMENT EXAM: XR STANDING ALIGNMENT XR knee LT 1 V CLINICAL HISTORY: LEFT KNEE PAIN. TECHNIQUE: 2D digital imaging was performed. Five images were obtained. COMPARISON: CR XR KNEE LT 4V AP,LAT,ISIAH,PAT from 12/27/2023 CR XR KNEE LT 1V from 04/17/2024 FINDINGS: BONES: There is mild narrowing of the hip joints bilaterally. The right knee is well maintained. Th ere is marked narrowing in the medial femoral tibial joint of the left knee. Osteophytes are also se en medially in the joint space. There is also joint space narrowing and osteophytes at the patellofe moral joint. The ankles are well maintained.There is no significant leg length discrepancy. SOFT TISSUE: Normal. IMPRESSION: Marked degenerative changes seen in the left knee. DATA REPOSITORY: RADIATION DOSE DELIVERED:
== END 2024-04-17 15:51 | disposition home or self-care (01) ==
LOC: DIORS 15:50
PROVIDERS: PCP Family Medicine; Visit Provider Student in an Organized Health Care Education/Training Program
DX: M17.12 Unilateral primary osteoarthritis, left knee (principal)
CPT/HCPCS: 73560; 77073

== ENCOUNTER 2024-06-16 02:03 | Outpatient (CLI) | payer OTHER, SELFPAY ==
[2024-06-16 11:53] LABS: HCT 41.7 % (36.0-46.0); HGB 13.2 g/dL (11.2-15.7); MCH 28.4 pg (27.0-33.0); MCHC 31.7 % (32.0-36.0); MCV 90 fL (80-95); MPV 10.4 fL (8.0-11.0); Platelet Count 192 10^3/uL (130-400); RBC 4.65 10^6/uL (3.93-5.22); RDW 15.9 % (11.7-14.6); RDW-SD 51.8 fL; WBC 4.29 10^3/uL (4.4-10.8)
[2024-06-16 12:20] LABS: Anion Gap 8.5 mmol/L (3-11); BUN 15 mg/dL (7-18); CO2 28.5 mmol/L (21.0-32.0); CREATININE 0.8 mg/dL (0.55-1.02); Calcium 9.3 mg/dL (8.5-10.1); Chloride 108 mmol/L (98-107); Estimated GFR 79.71 (mL/min/1.73m2); Glucose 130 mg/dL (74-106); Potassium 3.6 mmol/L (3.5-5.1); Sodium 145 mmol/L (136-145)
== END 2024-06-16 02:04 | disposition home or self-care (01) ==
LOC: LBO 02:03
PROVIDERS: PCP Family Medicine; Visit Provider Student in an Organized Health Care Education/Training Program
DX: M17.12 Unilateral primary osteoarthritis, left knee (principal); Z01.818 Encounter for other preprocedural examination
CPT/HCPCS: 36415; 80048; 85027

== ENCOUNTER 2024-06-28 08:31 | Day surgery (SDC) | payer OTHER, SELFPAY ==
--- NOTE | 2024-06-27 19:03 | W.ANESPRE ---
General Info Date of Service Date Performed: 06/28/24 Height: 5 ft 4 in Weight: 57.606 kg Body Mass Index (BMI): 21.8 Surgical Procedure: Operation Date: 06/28/24 10:10 Proposed Procedure Side Surgeon p Knee Total Arthroplasty Left Miguel Sanders MD Meds Allergies and Home Medications Allergies Allergy/AdvReac Type Severity Reaction Status Date / Time No Known Allergies Allergy Verified 06/28/24 08:55 Home Medication ?Medication ?Instructions ?Recorded tacrolimus 0.1 % topical ointment 1 applic topical BID PRN 08/05/20 clobetasol 0.05 % topical ointment 1 applic topical DAILY PRN 02/27/21 psoriasis #60 grams estradiol 2 mg (7.5 mcg/24 hour) 1 vag ring vaginal [id number] #1 ea 11/08/23 vaginal ring (Estring) acetaminophen 325 mg tablet 325 mg PO QID PRN 06/28/24 (Tylenol) acetaminophen 500 mg tablet 1,000 mg (2 x 500 mg) PO Q8H PRN 06/28/24 pain #90 tabs aspirin 81 mg tablet,delayed 81 mg PO BID 30 days #60 tabs 06/28/24 release celecoxib 200 mg capsule (Celebrex) 200 mg PO BID PRN #60 caps 06/28/24 dexamethasone 4 mg tablet 4 mg PO DAILY #2 tabs 06/28/24 docusate sodium 100 mg capsule 100 mg PO BID #30 caps 06/28/24 (Colace) gabapentin 300 mg capsule 300 mg PO QHS #14 caps 06/28/24 mecobalamin (vitamin B12) 1,000 1,000 mcg PO DAILY 06/28/24 mcg chewable tablet meloxicam 15 mg tablet mg 06/28/24 oxycodone 5 mg tablet 5 mg PO Q4H PRN #18 tabs 06/28/24 pantoprazole 40 mg tablet,delayed 40 mg PO DAILY #14 tabs 06/28/24 release Current Visit Medications: Current Medications Generic Name Dose Route Start Last Admin Trade Name Freq PRN Reason Stop Dose Admin Acetaminophen 1,000 mg 06/28/24 06:00 Acetaminophen 500 Mg Tab PO 06/28/24 18:00 PREOP NAYANA Celecoxib 400 mg 06/28/24 06:00 Celecoxib 200 Mg Cap PO 06/28/24 18:00 PREOP NAYANA Gabapentin 300 mg 06/28/24 06:00 Gabapentin 300 Mg Cap PO 06/28/24 18:00 PREOP NAYANA Cefazolin Sodium/Dextrose 2 gm in 50 mls @ 100 mls/hr 06/28/24 06:00 Ancef Duplex IVPB 06/28/24 18:00 PREOP NAYANA Tranexamic Acid/Sodium Chloride 1,000 mg in 100 mls @ 600 mls/hr 06/28/24 06:00 IVPB 06/28/24 18:00 PREOP NAYANA Ringer's Solution 500 mls @ 80 mls/hr 06/28/24 06:00 IV 07/27/24 23:59 INF[facility]ION [facility] IV Miscellaneous Supplies 1 each 06/28/24 06:00 Iv Access IV 07/27/24 23:59 DIRECTED NAYANA Sodium Chloride 0 ml 06/28/24 06:00 Normal Saline Flush 10 Ml Syr IV 07/27/24 23:59 PRN PRN Sodium Chloride 0 ml 06/28/24 06:00 Normal Saline 10 Ml Vial IJ 07/27/24 23:59 DIRECTED PRN Sterile Water 0 ml 06/28/24 06:00 Water,Injection,Sterile 10 Ml Vial IJ 07/27/24 23:59 DIRECTED PRN PFSH Active Problems Active Problems: Problem Status Onset Code Chest wall pain Acute R07.89 Arthritis of knee, left Acute M17.12 Atrial septal aneurysm Acute I25.3 Bone cyst of left tibia Acute M85.662 Osteoarthritis of left knee Acute M17.12 Abnormal EKG Acute R94.31 Chest pain of uncertain etiology Acute R07.9 Closed fracture of left clavicle Acute 10/03/23 S42.002A Abnormal mammogram Acute R92.8 Hyperplastic colon polyp Acute K63.5 Distal radius fracture, right Acute 18 S52.501A Anemia Chronic D64.9 Left foot pain Acute M79.672 Adenomatous colon polyp Acute D12.6 Positive colorectal cancer screening using Cologuard test Acute R19.5 Positive colorectal cancer screening using Cologuard test Acute R19.5 Knee pain Acute 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 pt. states it is non exisitent anymore Anal fissure 11/01/12 Surgical History Surgical History (Updated 06/28/24 @ 09:06 by Osman Monoey RN) H/O breast biopsy Right carpal tunnel syndrome S/P ECTR: 09/01/2021 Hx of wisdom tooth extraction Hx of colonoscopy Hx of appendectomy 08/30/07 Appendectomy (~11/2007) pt. 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 Tobacco Smoking/Tobacco Use Status: Never Passive smoking exposure: No Second hand exposure: No Alcohol Alcohol Intake: current Alcohol intake frequency: a few times a week Alcohol type: wine Substance Use Substance use: Never Substance use type: does not use Details: alcohol: wine, t-2, 8 oz Vital Signs and Lab Results Vital Signs Most Recent Vital Signs in EMR: Temp Pulse Resp BP Pulse Ox 35.9 C L 60 17 140/73 99 06/28/24 08:43 06/28/24 08:43 06/28/24 08:43 06/28/24 08:43 06/28/24 08:43 Lab Results Blood Type / Crossmatch: No Data to Display Complete Blood Count: White Blood Count 4.29 10^3/uL (4.4-10.8) L 06/16/24 11:40 Red Blood Count 4.65 10^6/uL (3.93-5.22) 06/16/24 11:40 Hemoglobin 13.2 g/dL (11.2-15.7) 06/16/24 11:40 Hematocrit 41.7 % (36.0-46.0) 06/16/24 11:40 Platelet Count 192 10^3/uL (130-400) 06/16/24 11:40 Complete Metabolic Panel: Sodium 145 mmol/L (136-145) 06/16/24 11:40 Potassium 3.6 mmol/L (3.5-5.1) 06/16/24 11:40 Chloride 108 mmol/L (98-107) H 06/16/24 11:40 Carbon Dioxide 28.5 mmol/L (21.0-32.0) 06/16/24 11:40 BUN 15 mg/dL (7-18) 06/16/24 11:40 Creatinine 0.8 mg/dL (0.55-1.02) 06/16/24 11:40 Est GFR (CKD-EPI 2020) 79.71 (mL/min/1.73m2) 06/16/24 11:40 Calcium 9.3 mg/dL (8.5-10.1) 06/16/24 11:40 Glucose 130 mg/dL (74-106) H 06/16/24 11:40 Liver Function Panel: No Data to Display Coagulation Panel: No Data to Display Cardiac Panel: No Data to Display Arterial Blood Gas: No Data to Display Venous Blood Gas: No Data to Display Pancreas Panel: No Data to Display Thyroid Panel: No Data to Display Infectious Disease: No Data to Display Blood Cultures: No Data to Display Toxicology Panel: No Data to Display Anesthesia Assessment and Plan Anesthesia History Personal History: No History of Anesthesia Complications Family History: No Family History of Anesthesia Complications Exercise Tolerance Exercise Tolerance: Metabolic Equivalents>4 Cardiac & Pulmonary Exam Cardiac Exam: Normal S1/S2 Heart Sounds Pulmonary Exam: Clear Bilateral Breath Sounds Implantable Cardiac Device Does patient have a Pacemaker or an ICD?: No Airway Exam Known Difficult Airway: No Mallampati Class: 2 Mouth Opening: Normal (> 3cm) Thyromental Distance: Greater than 3 cm Neck Range of Motion: Full ROM Neck Circumference: Normal Teeth Condition: Normal Dentition ASA Classification ASA Score: ASA 2 Emergency Case?: No NPO Status NPO Status: NPO Clears >2 hours, Solids >8 hours Anesthesia Plan Resuscitation Status: Full Code Anesthesia Technique: General Anesthesia Airway Planned: Endotracheal Tube Pain Management: Surgeon and patient request nerve block Monitors Used: Standard Monitors Preoperative Comments:: 69 yo female for TKA. 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 never smoker, occ EtOH. EKG: sinus, LAFB. ECHO: LVEF 60%. atrial septal aneurysm. mild AR/MR/TR. Previous Anes: - ECTR, ketamine/prop, natural airway, no issues. - colo, prop, natural airway, no issues. Discussed risk and benefits of spinal vs general and the association with her hx of polyneuropathy. Given this we discussed that GA may be the best course of action for her given the lack of available evidence.
[2024-06-28] VITALS (17 sets, daily range): BP systolic 119–167; BP diastolic 66–100; PULSE 51–71; RESP 11–24; TEMP 35.9–36.6; O2SAT 97–100; BMI 21.8
--- NOTE | 2024-06-28 07:06 | PDOC.DSDIS_ITS ---
Date of service: 06/28/24 Time of Service: 07:10 Discharge Plan Disposition Patient Disposition: Home Condition: Good Discharge Details Reason For Visit: Left knee DJD Attending Provider: Miguel Sanders Primary Care Provider: Chante Telles Home Meds and New Rx's Prescriptions: New celecoxib [Celebrex] 200 mg capsule 200 mg PO BID PRNQty: 60 0RF Rx Instructions: Take one tablet twice daily for pain and inflammation aspirin 81 mg tablet,delayed release (DR/EC) 81 mg PO BID 30 Days Qty: 60 0RF acetaminophen 500 mg tablet 1,000 mg PO Q8H PRN Qty: 90 0RF Rx Instructions: Take two tablets up to every 8 hours as needed for pain pantoprazole 40 mg tablet,delayed release (DR/EC) 40 mg PO DAILY Qty: 14 0RF dexamethasone 4 mg tablet 4 mg PO DAILY Qty: 2 0RF Rx Instructions: Take one tablet once daily for two days docusate sodium [Colace] 100 mg capsule 100 mg PO BID Qty: 30 0RF gabapentin 300 mg capsule 300 mg PO QHS Qty: 14 0RF Rx Instructions: Take one tablet at bedtime oxycodone 5 mg tablet 5 mg PO Q4H PRNQty: 18 0RF Rx Instructions: Take one tablet up to every 4 hours as needed for severe postoperative pain Continued clobetasol 0.05 % ointment 1 applic topical DAILY PRN (Reason: psoriasis) Qty: 60 4RF tacrolimus 0.1 % ointment 1 applic topical BID PRN Estring 2 mg (7.5 mcg /24 hour) ring 1 vag ring vaginal [id number] Qty: 1 4RF Discontinued meloxicam 15 mg tablet 15 mg PO DAILY Qty: 90 3RF acetaminophen 500 mg tablet 500 mg PO Q6H PRN (Reason: pain) Qty: 60 2RF ibuprofen 600 mg tablet 600 mg PO TID PRN (Reason: pain) Qty: 60 0RF Discharge Instructions Additional Instructions: Total Knee Discharge Instructions Activity: The most important activity is to walk and to work on gentle motion (both flexion and extension). You should try to take short walks a few times a day. It is important that when resting you work on keeping the knee straight. Avoid putting a pillow behind the knee as this will encourage flexion. Work on range of motion exercises as provided by Physical Therapy. - Start outpatient physical therapy within 2 weeks. - You should wear the LASHAWN hose on both legs for 2 weeks. You may remove these at night. You may also use any compression sock in place of the LASHAWN hose. - Utilize [employer] to review exercises, see videos on exercises and obtain basic information pertaining to your surgery and your recovery. Dressing: Remove the Perfecto wrap by 2 days after your surgery and put on the LASHAWN stocking given to you from the hospital. Keep the surgical dressing (underneath the PERFECTO wrap) in place for at least one week. After the first week it may be removed and replaced with light gauze and tape or nothing. The wound and dressing may get wet after 3 days but avoid soaking the dressing or otherwise it will need to be changed. Many people prefer covering the dressing with cling wrap (saran wrap) to minimize it from getting soaked. If it gets wet, just pat dry. If it starts to peel off then it will need to be changed. Medications: - You should take Tylenol and anti-inflammatory Celebrex as your primary pain control medications. If the Celebrex is too expensive or not covered, please call the office for another alternative (Advil/Ibuprofen or Naproxen/Aleve) - You have been prescribed a stronger pain medication Oxycodone for breakthrough pain, take as needed as prescribed. - You have also been prescribed a stomach acid reduction agent Pantoprozole to help reduce stomach acid and reflux. - You have been prescribed Gabapentin to take at night for restlessness and nerve pain. - You will be taking Aspirin 81mg twice a day for DVT prevention unless instructed otherwise. - You have also been prescribed Decadron to take to control post-operative nausea and pain. You will start this tomorrow. - If you have constipation you should take Colace (which has been prescribed) or Miralax (which is available naob-hom-cuvabti). It takes most people 3-4 days to have a bowel movement. Follow-up: 2 weeks If you have any acute concerns or questions, please do not hesitate to contact the office at [phone]. You may contact Dr. Sanders with any questions after hours through the hospital at [phone] or on his cell phone at [phone]. Referrals: Miguel Sanders MD [ [facility] STAFF PHYSICIAN] - Equipment/Supplies: Walker Activity:: Elevate Remove Dressings/Wound Care:: Do Not Remove Shower/Bathe:: Cover Diet:: As Tolerated Discharge Orders Discharge Orders: Discharge Order (Routine); Ordered 06/28/24 Ordered By: Letty Johnson
[2024-06-28] MEDS: Acetaminophen 500 MG TAB 1000 MG PO (08:57)
[2024-06-28] MEDS: Celecoxib 200 MG CAP 400 MG PO (08:57)
[2024-06-28] MEDS: Gabapentin 300 MG CAP PO (08:57)
[2024-06-28] MEDS: Lactated Ringers 1,000 ML 80 ML IV (09:09)
[2024-06-28] MEDS: ceFAZolin 2 GM/50 ML BAG IVPB (09:51)
[2024-06-28] MEDS: TRANEXAMIC ACID/SOD. CHL. 1,000 MG/100 ML BAG 600 MG IVPB (10:00)
--- NOTE | 2024-06-28 10:13 | W.ANESNERVE ---
Nerve Block Single Injection Procedure Date and Time Date Performed: 06/28/24 Procedure Start: 09:31 Location Where Procedure Performed Procedure Location: Day Surgery Unit Reason Performed: Postoperative Analgesia Requesting Provider: Miguel Sanders Timeout Performed Timeout Performed: Yes Monitoring Used ECG, Blood Pressure and SpO2 Sterility Sterility: Hand Hygiene, Surgical Cap, Surgical Mask, Sterile Gloves and Chlorhexidine Sedation Given During Procedure Sedation Given (Indicate Dose Given): Versed IV Dose:: 1 mg Patient Mental Status Patient Mental Status: Sedate with meaningful communication Nerve Block 1st Nerve Block: Laterality: Left Block Type: Adductor Canal Ultrasound Image Saved?: Yes Needle / Catheter Used: 80mm SonoPlex II Local Anesthetic Bolus (Indicate Dose Given): Lidocaine used for local infiltration of skin and Bupivacaine 0.25% Dose:: 10 mL Additives (Indicate Dose Given): None Ultrasound: Sterile probe cover and gel used Nerve Stimulator: Supplement to Ultrasound use and No twitch or parasthesia noted < 0.5 mA Paresthesia: None Procedure Tolerated: No Complications Procedure Outcome: Successful Performed By: Jose Chamberlain
--- NOTE | 2024-06-28 11:28 | ROE_ITS ---
Date of service: 06/28/24 Time of Service: 10:05 Operative Note Operative Note DATE OF PROCEDURE: 06/28/24 PRE-OP DIAGNOSIS: Left Knee Osteoarthritis Simple Bone Cyst - Left Knee POST-OP DIAGNOSIS: same PROCEDURE: Left Total Knee Replacement with bone grafting of tibial bone cyst SURGEON: Miguel Sanders DOUBLE NEEDLE OPERATOR LOCKSTITCH: Letty Johnson ANESTHESIA TYPE: General LMA/ETT Refer to Anesthesia Record ESTIMATED BLOOD LOSS: 100 PATHOLOGY: none sent TOURNIQUET TIME: 0 COMPLICATIONS: None Patient was transported to: PACU Patient's condition: stable Implants: 1. Depuy Attune Cementless Cruciate Retaining Femoral Component, Size 6 Narrow 2. Depuy Attune Cementless Fixed Bearing Tibial Component, Size 5 3. Depuy Attune 6x6mm CR/FB Poly 4. Depuy Attune Patellar Component, Size 32 Indications: I have seen Roseanna in clinic for symptoms of knee arthritis, confirmed with radiographic findings. She has exhausted nonoperative methods and was having significant limitations in daily function and desired better function and less pain. I discussed the technical details of a knee replacement. I explained the risks of the procedure to include, but not limited to, bleeding, infection, pain, stiffness, fracture, damage to nerves and vessels, damage to muscles and tendons, loosening, need for repeat procedure, blood clot and cardiopulmonary demise. Despite these risks, Roseanna elected to proceed. Findings: There was significant signs of arthritis throughout the knee with synovitis. There was a simple bone cyst of the central-posterior tibia with a sclerotic border. Cystic contents were removed and this was bone grafting prior to placing the tibial component. Procedure Description: Roseanna was greeted in the preoperative holding area where the correct side was identified and marked. The consent was reviewed with the patient and signed. The history and physical was updated. All questions were answered. Preoperative medications were administered: Acetaminophen 1000mg, Celebrex 400mg, and Gabapentin 300mg. An adductor canal block was then administered by the anesthesia team in the DSU. Roseanna was taken back to the operating room. A general anesthestic was then administered. The patient was placed into the supine position on the operating room table. Posts were placed for positioning during the procedure. All bony prominences were well padded. Prophylactic antibiotics in the form of Cefazolin were administered. 1g of Tranxemic Acid was given intravenously within 30 minutes of incision. The left leg was then prepped with Chloraprep and draped in a standard fashion with impervious stockinette. A second prep with Chloraprep was performed prior to application of Iodine impregnated skin protection. A timeout to confirm correct identity, side and site, procedure, allergies, anesthesia, and medical concerns was performed. With the knee in some flexion, a midline incision was made overlying the knee. Full thickness skin flaps were raised once the extensor mechanism was encountered. These were raised medially and laterally. Any bleeding was controlled with electrocautery. Once the extensor mechanism was fully exposed, a medial parapatellar arthrotomy was performed in a flexed position. All bleeding from the arthrotomy and the geniculate arteries was coagulated. A medial subperiosteal peel was performed with electrocautery to the midcoronal plane. The fat pad was removed while keeping the patellar tendon protected. The anterior distal femur synovium was removed for later visualization. The ACL and PCL were resected and the anterior horn of the lateral meniscus was transected. The knee was then flexed with the patella everted. Large osteophytes from the tibia were removed. Large osteophytes from the femur were removed. There was notable synovitis throughout the knee which was debrided. Using a step drill, and based on preoperative templating, the femoral canal was entered. This was done with a step drill without any difficulty. The intramedullary distal femoral cut guide was inserted, set to a 6 degree valgus cut and 9mm cut thickness. The distal femoral cut guide was then held in positi on and pinned. With the soft tissues protected, the distal cut was performed. This was passed over a few times to ensure a planar cut. I then turned attention to the tibia. The extramedullary guide was placed onto the leg. The distal aspect was slid medial to adjust for position of center of ankle and stay in line with shaft of the tibia. Approximately 5 degrees of posterior slope was kept in the proximal cutting guide. The center of the guide was aligned with the PCL. The stylus was used to assess cut thickness. The medial side, most involved side, was set for a 4mm cut. This was then held in position and pinned into place with 2 additional pins and a cross pin for stability. The medial and lateral collateral ligaments were protected and the cut was performed. The MCL complex was significantly adherent to the posterior medial aspect of the tibia. Utilizing cautery and retractors I was able to tease this off of the proximal tibia to allow the cut to be completed. With this completed, it was assessed and noted to be of appropriate dimensions. There was a cyst seen in the central?posterior aspect of the tibia. The surrounding bone was healthy without any significant concern. The cystic contents were removed and there was a sclerotic border to the cyst. The guide was removed. A spacer block was inserted and the knee was brought into extension. The 6mm spacer block provided full extension, without hyperextension and with stability of both the medial and lateral collateral ligaments was assessed. The pins from the femur and the tibia were then removed. The distal femur was then sized. The anterior stylus was placed onto the lateral ridge of the anterior femur. This indicated a size 6 narrow femur. The external rotation of the guide was adjusted to 0 degrees to match the epicondylar axis, perpendicular to Amol?s line. The 4-in-1 cutting guide was the placed. The posterior medial femur cut was evaluated and appeared of good thickness. The spacer block was inserted underneath the cutting guide and stability was confirmed in 90 degrees of flexion. An jaclyn wing was used to confirm appropriate position of the anterior cut to avoid notching. This cutting guide was ensured to be flush on the cut surface and then pinned into place with headed pins. While protecting the soft tissues, quad tendon, and collateral ligaments, the anterior and posterior cuts were performed with a saw. The central two pins were removed and the posterior and anterior chamfers were cut next. The notch-cutting guide was placed. This was pinned to lateralize the femoral component as much as possible while keeping it flush on the cut surface. This was then pinned into position. A reciprocating saw was used to make the notch cut. A rasp smoothed the cut surfaces. The medial and lateral menisci were removed. A trial femoral component was then inserted, impacted down to the cut surfaces, and the lug holes were drilled. A provisional trial tibial component was placed and the knee was brought through range of motion. There was noted to be excellent extension and flexion. There was no significant instability. The patella was tracking without thumbs. A size 6mm polyethylene component provided the best range of motion and stability with less than 2mm gapping with medial and lateral stress and full extension without significant hyperextension. The knee was then brought into extension and the patella was measured as 22mm. Using the patellar clamp and cut guide, this was resected to a flat surface with at least 13mm of thickness remaining. The size [35] patella fit the best. This was oriented and then clamped into position. The lugs were drilled. The trial components were removed. The final components were opened on the back table. The periosteal and capsular tissues, especially posteriorly, around the knee were then systematically injected with a periarticular cocktail consisting of 246mg of Ropivacaine, 0.5mg of Epinephrine, 0.08mg of Clonidine, and 30mg of Ketorolac, diluted to 100cc. On the back table, the cement was mixed. One batch of high viscosity cement was prepared with vacuum assistance. After the cement was ready a small amount was placed on the cut surface of the patella and the patellar button was clamped into position and held. The tibial cut surface was fully exposed. The tibia was then sized as a 5. The tibia had been previously marked during trialing to correspond to the center of the tibial component to help with rotation. The majority of the cyst of the proximal tibia was not underneath the tibial tray. However, I removed the tray and then prepared the cyst. Any remnant cystic capsule was removed. The cyst sterling which were sclerotic were debrided with a curette to there is some bleeding and scarification of the cyst bony wall. I then used bone from the anterior chamfer cut as well as from the drilling earlier to pack into the cystic hole. This was manually pressurized and a bone tamp was also utilized. The trial was placed back onto the tibia. The trial was aligned to the previous hattie, approximately rotated to the medial 1/3rd of the tibial tubercle. The trial was pinned into place. The tibia was prepared with a reamer and a keel punch and lug holes. Bone from this reaming process was also utilized to pack into any gaps within the cyst. While the cement was hardening, the cementless knee components were placed. Starting with the tibial component, the tibia was subluxed anteriorly and the lug holes of the component were lined up. The tibia was then impacted with an impactor and mallet until the tibial component was in contact with the tibia. Then, the femoral component was inserted. The lug holes were aligned and the component was impacted into position. The final polyethylene was then inserted as well. The knee was irrigated with Surgiphor Betadine solution. This was allowed to sit in the knee for 3 minutes and then it was irrigated out with saline. After the cement had finally cured, approximately 15min, the clamp was removed from the patella and the knee was taken through range of motion. The patella was tracking with a no-thumbs technique. The capsule was then reapproximated with a No. 1 Vicryl at multiple locations. The capsule was finally closed with a No. 2 Stratafix, barbed suture. The second dosing of 1g TXA was started. Deep tissues were then reapproximated with 0 Vicryl and 2-0 Vicryl. The skin was closed with a running 3-0 Monocryl in a subcuticular fashion. This was reinforced with skin glue. A Mepilex silver dressing was applied along with a [id number] HA wrap. A CryoCuff was applied. Roseanna was transferred to the hospital bed without difficulty an suffering no apparent complication. Roseanna has a good prognosis. Physical therapy will start today and without restrictions, weight-bearing as tolerated. Aspirin 81mg BID will be used for DVT prophylaxis.
[2024-06-28] MEDS: HYDROmorphone 1 MG/ML SYR IVP ×2 (11:43→11:53)
--- NOTE | 2024-06-28 12:01 | W.ANESPOSTOP ---
Postoperative Evaluation Date, Time and Location Date Performed: 06/28/24 Time Performed: 12:02 Patient Location: PACU Vital Signs Most Recent Imported Vital Signs: Most Recent Vital Signs Temp Pulse Resp BP Pulse Ox 36.6 C 57 L 20 167/73 H 99 06/28/24 11:51 06/28/24 11:51 06/28/24 11:55 06/28/24 11:51 06/28/24 11:55 Pain Score Most Recent Pain Score: Most Recent Pain Score Pain Level 5 06/28/24 11:50 Assessment Mental Status: Awake (Alert & Oriented to Patient Baseline) Airway and Respiratory Function: Patent airway with normal (patient baseline) respiratory exam Cardiovascular Function: Hemodynamically Stable Hydration Status: Adequately Hydrated Nausea & Vomiting: No Nausea or Vomiting Pain: Pain is Moderate or Severe Postoperative Pain Management: Pain being addressed with medication Peripheral Nerve Block: Regional nerve block not resolved at time of post operative discharge
[2024-06-28] MEDS: oxyCODONE 5 MG TAB PO (13:01)
--- NOTE | 2024-06-28 13:58 | PT.INIE ---
PT Notes Visit Reasons: Left knee DJD Physical Therapy Day Surgery Initial Evaluation Date: 06/28/2024 Referring Doctor: NOLA Pan PT Orders: PT CONSULT: S/P Ortho Surgery Precautions: WBAT on the left LE with AD. Patient Profile/Admitting Diagnosis: Patrica is a 69-year-old female with degenerative joint disease of the left knee and is status post left total knee arthroplasty on postoperative day 0. PMHX: Medical History (Updated 06/16/24 @ 10:58 by NOLA Dutton) Hyperplastic colon polyp Disorder of breast dense,nodular Shoulder pain 07/29/03 left shoulder bursitis Chronic inflammatory demyelinating polyradiculoneuropathy 11/01/12 DUB (dysfunctional uterine bleeding) 11/01/12 Acute infective polyneuritis 11/01/12 Heart murmur 11/01/12 intermittent systolic murmur Per. pt. states it is non exisitent anymore Anal fissure 11/01/12 Surgical History (Updated 06/16/24 @ 10:58 by NOLA Dutton) Right carpal tunnel syndrome S/P ECTR: 09/01/2021 Hx of wisdom tooth extraction Hx of colonoscopy Hx of appendectomy 08/30/07 Appendectomy (~11/2007) pt. 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 Equipment Owned/DME: 2 FWWs Subjective: Groggy. Pain in knee minimal. Denied headache, chest pain, and lightheadedness. Objective: General Observation: HA wraps to left LE. Cryocuff to left knee. TEDS to right leg and foot. Mental Status: A and O x 4 Pain: 2-3/10 in the L knee ROM: Right Lower Extremity: Hip flexion WFL. Hip abduction WFL. Knee flexion WFL. Ankle dorsiflexion WFL. Ankle plantarflexion WFL. Left Lower Extremity: Hip flexion WFL. Hip abduction WFL. Knee flexion 10 degrees to 90 degrees. Knee extension -10 degrees. Ankle dorsiflexion WFL. Ankle plantarflexion WFL. Strength: Right Lower Extremity: Hip flexors 5/5. Hip abductors 5/5. Knee flexors 5/5. Knee extensors 5/5. Ankle dorsiflexors 5/5. Ankle plantarflexors 5/5. Left Lower Extremity:Hip flexors 5/5. Hip abductors 5/5. Knee flexors 3-/5. Knee extensors 3-/5. Ankle dorsiflexors 5/5. Ankle plantarflexors 5/5. Sensation: Intact tested pain and light pressure in bilateral lower extremities Bed Mobility/Transfers: Minimal cueing provided for use of B hands as needed for support, movement sequence, AD management, and posture to reduce fall risk and minimize pain report Supine to sit stand by assist Sit to stand ocnatct guard assist removing Stand to sit stand by assist Bed to chair stand by assist Gait: Facilitated safe and correct performance of level surface ambulation covering a distance of 150 feet with reciprocal step through heel-toe gait pattern using front wheeled walker and standby assist with minimal verbal cueing for movement sequence, AD management, and posture to minimize pain report and reduce fall risk. Stairs: Guided patient with safe and correct negotiation of 6 x 4 inch steps and 4 x 6 inch steps while holding onto bilateral rails with step to gait pattern requiring minimal verbal cueing for step sequence, hand placement, posture, and increased knee flexion on the left during each ascent to reduce fall risk and minimize pain report. Balance: Static Sitting: Normal Dynamic Sitting: Normal Static Standing: Fair Dynamic Standing: Fair Special Tests: Mobility Limitations Standardized Measure [facility] AM-PAC 6 clicks Basic Mobility Inpatient Short Form: Raw Score: 22 CMS Score: 21% deficit Informed Consent/Education: Patient instructed in purpose of PT consult. Packet containing TKA exercise protocol has been given to patient. Education and training on initial set of exercises that can be done at home have been completed with patient. Trained patient with correct performance of exercises below to maximize motor control, joint flexibility, soft tissue extensibility of the knee musculature: Access Code: [email or web address] URL: [email or web address] Date: 06/28 Biapical DeCarvalho Prepared by: Mi Gregg Exercises - Supine Quad Set - 1 x daily - 7 x weekly - 1 sets - 10 reps - 5 hold - Supine Heel Slide - 1 x daily - 7 x weekly - 1 sets - 10 reps - 5 hold - Supine Ankle Pumps - 1 x daily - 7 x weekly - 1 sets - 10 reps - 5 hold - Small Range Straight Leg Raise - 1 x daily - 7 x weekly - 1 sets - 10 reps - 5 hold - Seated March - 1 x daily - 7 x weekly - 1 sets - 10 reps - 5 hold Assessment: Mild extensor lag noted on the L knee with small range straight leg raise. Patient requires the use of a front wheeled walker for mobility ADL performance to maximize independence and reduce fall risk. Patient presents with clinical signs and symptoms consistent with current/admitting diagnoses that have resulted to mobility limitations, gait instability, generalized weakness, and impairment of motor control as demonstrated by the following impairment level findings: 1. Decreased strength to left knee major muscle groups 2. Impaired standing balance 3. Limitation of joint range of motion in left knee Impairments are contributing to the following functional limitations: 1. Inability to safely ambulate without assistive device 2. Increase completion time for mobility ADL performance 3. Increased fall risk Patient is assessed as a 11546 moderate complexity based on the following: History: 69-year-old female with impairment level findings, functional limitations, and past medical history as indicated above Examination: Demonstrable impairment in strength, balance, and mobility level with underlying impairments and functional limitations as documented above Presentation: Evolving Decision Makin moderate complexity Goals: N/A. PT evaluation and 1-2 treatment sessions only for functional mobility training using recommended AD and for HEP instruction. Plan of Care/Treatment Plan: N/A. PT evaluation and 1-2 treatment session only for functional mobility training using recommended AD and for HEP instruction. DISCHARGE RECOMMENDATIONS: Home when medically cleared by orthopedic surgeon. Recommend outpatient PT services in order to optimize functional mobility outcomes and facilitate return to independent community ambulation without an assistive device. TREATMENT CODE/TIME: 48034 x 20 minutes for 1 unit, 78249 x 13 minutes for 1 unit (13:[id number]). Thank you for the opportunity to participate in the care of this patient. Please sign an return this page within 30 days if you agree with the above POC. Thank you! Physician Signature Date [facility] Mi Gregg PT, DPT, CLT [facility] [place], [place]
== END 2024-06-28 14:50 | disposition home or self-care (01) ==
LOC: SUR 08:31
PROVIDERS: PCP Family Medicine; Visit Provider Student in an Organized Health Care Education/Training Program
PROC: (CPT 27447; principal; 2024-06-28 10:00)
DX: M17.12 Unilateral primary osteoarthritis, left knee (principal); M85.462 Solitary bone cyst, left tibia and fibula; D64.9 Anemia, unspecified; G89.18 Other acute postprocedural pain
CPT/HCPCS: 27447; 27637; 64447; 76942; 97162; 97530; C1776; J0665; J0690; J1100; J1171; J2250; J2401; J2405; J2704

== ENCOUNTER 2024-07-13 11:55 | Outpatient (CLI) | payer OTHER, SELFPAY ==
--- NOTE | 2024-07-13 10:00 | DI.RAD_ITS ---
Exam(s) XR KNEE LT 1V XR STANDING ALIGNMENT EXAM: XR STANDING ALIGNMENT CLINICAL HISTORY: 1ST POST OP S/P L TKA. TECHNIQUE: 2D digital imaging was performed. Standing AP views were performed from the pelvis throu gh the ankles. Lateral view left knee COMPARISON: CR XR STANDING ALIGNMENT from 04/17/2024 CR XR KNEE LT 1V from 07/13/2024 FINDINGS: BONES: No acute fracture is present. No bony destructive lesion is seen. Leg length discrepancy: Minimal overall leg length discrepancy, with the right femoral head projectin g a few millimeter superior to the left.. JOINTS: Knees: A total left knee prosthesis has placed since the prior exam which shows satisfactor y alignment. No significant degenerative changes of the right knee. The ankle joints are unremarkable. The hip joints are unremarkable. SOFT TISSUE: Normal. IMPRESSION: Status post placement of left knee prosthesis. Minimal leg length discrepancy. DATA REPOSITORY: RADIATION DOSE DELIVERED:
== END 2024-07-13 11:56 | disposition home or self-care (01) ==
LOC: DIORS 11:58
PROVIDERS: PCP Family Medicine; Visit Provider Physician Assistant
DX: Z96.652 Presence of left artificial knee joint (principal); Z47.1 Aftercare following joint replacement surgery
CPT/HCPCS: 73560; 77073

== ENCOUNTER 2024-08-04 01:59 | Outpatient (CLI) | payer OTHER, SELFPAY ==
[2024-08-04 13:03] LABS: Hemoglobin A1C 5.7 % (<5.7)
[2024-08-04 19:37] LABS: Hepatitis C Ab w Rflx HCV PCR Negative (Negative)
== END 2024-08-04 02:00 | disposition home or self-care (01) ==
LOC: LOS 02:00
PROVIDERS: PCP Family Medicine; Visit Provider Family Medicine
DX: Z11.59 Encounter for screening for other viral diseases (principal); E11.9 Type 2 diabetes mellitus without complications
CPT/HCPCS: 36415; 86803; 83036

== ENCOUNTER 2024-08-24 00:14 | Outpatient (CLI) | payer OTHER, SELFPAY ==
--- NOTE | 2024-08-24 08:00 | DI.DEXA_ITS ---
Exam(s) XR DEXA BONE DENSITY W/WO ANA M EXAM: XR DEXA BONE DENSITY W/WO ANA M CLINICAL HISTORY: ASYMPTOMATIC MENOPAUSAL STATE, Z78.0 TECHNIQUE: HoloElevate Horizon C densitometer analysis of left hip, lumbar spine and left forearm. Lat eral survey image of the thoracic and lumbar spine. COMPARISON: 2007 FINDINGS: Lateral view of the thoracic and lumbar spine shows no evidence of compression fractures. Bone mineral density measurements of the lumbar spine correspond to a total T-score of -2.8, in the osteoporotic range. This represents a 15.4 percent decrease compared to 2007. Bone mineral density measurements of the left hip correspond to a total T-score of -2.4. This repre sents a 17.6 percent decrease from 2007. the femoral neck T-score is -2.8, in the osteoporotic rang e. Theleft forearm bone mineral density measurements correspond to a T-score of the distal 3rd of -2.4, in the osteopenic range. The forearm was not analyzed in 2007. IMPRESSION: Osteoporosis of the spine and hip with decrease in bone density compared with 2007. Osteopenia of th e forearm.
--- NOTE | 2024-08-24 08:00 | DI.MAMMO_ITS ---
Exam(s) MAMMO SCREENING EXAM: MAMMO SCREENING CLINICAL HISTORY: screening, Z12.39 TECHNIQUE: Mammograms were interpreted according to the usual protocol including computer analysis w makemoji CAD system, tomosynthesis and C-view imaging. COMPARISON: 2014 through 2022 FINDINGS: The breasts are composed of heterogeneously dense fibroglandular densities, Breast Density category C . No suspicious masses or suspicious microcalcifications are seen. No skin thickening or abnormal axillary lymph nodes are seen. There has been no significant change from prior exams. IMPRESSION: BI-RADS Category 1, Negative mammogram. Yearly screening mammography is recommended. Breast Density Category C, heterogeneously Dense. The mammogram demonstrates the patient's breast tissue is dense. Dense breast tissue is very common a nd is not abnormal but dense breast tissue can make it harder to find cancer on a mammogram. Also, de nse breast tissue may increase breast cancer risk. This information about the result of the mammogram report was provided to the patient to raise their awareness. Use this report when you speak with the patient about their risks for breast cancer, which includes their family history. At that time, you may recommend additional screening tests (Ultrasound or MRI) as they might be useful based on their r isk. A negative radiographic report should not delay biopsy if a dominant or clinically suspicious mass is present. Up to ten percent of cancers are not identified on mammography. A negative report may reinforce clinical impression. Adenosis and dense breasts may obscure an underlying neoplasm. False positive reports average 6 to 10%.
== END 2024-08-24 00:34 ==
LOC: DI 00:14
PROVIDERS: PCP Family Medicine; Visit Provider Family Medicine
DX: Z78.0 Asymptomatic menopausal state (principal); Z12.31 Encounter for screening mammogram for malignant neoplasm of breast; M85.89 Other specified disorders of bone density and structure, multiple sites
CPT/HCPCS: 77063; 77067; 77080

== ENCOUNTER 2024-10-30 01:35 | Outpatient (RCR) | payer OTHER, SELFPAY ==
[2024-10-30] MEDS: Denosumab 60 MG/ML SYR SC (14:10)
== END 2024-11-27 23:59 | disposition home or self-care (01) ==
LOC: INF 01:35
PROVIDERS: PCP Family Medicine; Visit Provider Family Medicine
DX: M81.0 Age-related osteoporosis without current pathological fracture (principal)
CPT/HCPCS: 96372; J0897

== ENCOUNTER 2025-05-11 03:11 | Outpatient (RCR) | payer OTHER, SELFPAY ==
[2025-05-11] MEDS: Denosumab 60 MG/ML SYR SC (09:40)
== END 2025-05-29 23:59 | disposition home or self-care (01) ==
LOC: INF 03:11
PROVIDERS: PCP Family Medicine; Visit Provider Family Medicine
DX: M81.0 Age-related osteoporosis without current pathological fracture (principal)
CPT/HCPCS: 96372; J0897

== ENCOUNTER 2025-06-28 11:42 | Outpatient (CLI) | payer OTHER, SELFPAY ==
--- NOTE | 2025-06-28 09:45 | DI.RAD_ITS ---
Exam(s) XR KNEE LT 2V AP,LAT EXAM: XR KNEE LT 2V AP,LAT CLINICAL HISTORY: ANNUAL F/U L TKA. TECHNIQUE: 2D digital imaging was performed. COMPARISON: CR XR KNEE LT 1V from 07/13/2024 FINDINGS: Two views Stable position alignment of the components of the prosthesis. No fracture or loosening evident and no radiographic evidence of osteomyelitis. IMPRESSION: Stable satisfactory appearance DATA REPOSITORY: RADIATION DOSE DELIVERED:
== END 2025-06-28 11:43 | disposition home or self-care (01) ==
LOC: DIORS 11:43
PROVIDERS: PCP Family Medicine; Visit Provider Student in an Organized Health Care Education/Training Program
DX: Z96.652 Presence of left artificial knee joint (principal); Z47.1 Aftercare following joint replacement surgery
CPT/HCPCS: 73560

== ENCOUNTER 2025-08-14 08:46 | Outpatient (CLI) | payer OTHER, SELFPAY ==
[2025-08-14 13:49] LABS: ALT 18 U/L (10-49); AST 24 U/L (<34); Albumin 4.1 g/dL (3.2-5.0); Alkaline Phosphatase 41 U/L (46-116); Anion Gap 9.4 mmol/L (3-11); BUN 25 mg/dL (9-23); Bilirubin, Total 0.9 mg/dL (0.2-1.2); CO2 29.6 mmol/L (20.0-31.0); Calcium 10.5 mg/dL (8.3-10.6); Chloride 104 mmol/L (98-107); Glucose 89 mg/dL (74-106); Potassium 3.8 mmol/L (3.5-5.1); Sodium 143 mmol/L (136-145); Total Protein 6.9 g/dL (5.7-8.2)
[2025-08-14 15:40] LABS: Hemoglobin A1C 5.7 % (<5.7)
== END 2025-08-14 08:47 | disposition home or self-care (01) ==
PROVIDERS: PCP Family Medicine; Visit Provider Family Medicine
DX: I10 Essential (primary) hypertension (principal); E11.9 Type 2 diabetes mellitus without complications
CPT/HCPCS: 36415; 80053; 83036

== ENCOUNTER → 2025-08-29 07:35 | Outpatient (CLI) | payer OTHER, SELFPAY ==
--- NOTE | 2025-08-29 05:30 | DI.MAMMO_ITS ---
Exam(s) MAMMO SCREENING EXAM: MAMMO SCREENING CLINICAL HISTORY: screening,z12.39 TECHNIQUE: Mammograms were interpreted according to the usual protocol including computer analysis with CAD system, tomosynthesis and C-view imaging. COMPARISON: 2015 through 2023 FINDINGS: The breasts are composed of heterogeneously dense fibroglandular densities, Breast Density category C. No suspicious masses or suspicious microcalcifications are seen. A biopsy marker clip is again noted in the lateral right breast. No skin thickening or abnormal axillary lymph nodes are seen. There has been no significant change from prior exams. IMPRESSION: BI-RADS Category 1, Negative mammogram. Yearly screening mammography is recommended. Breast Density: Category C - The breasts are heterogeneously dense, which may obscure small masses. Breast density Category C or D implies that the patient has dense breast tissue. Dense breast tissue can make it harder to find cancer on a mammogram. Dense breast tissue is also associated with an increased risk of breast cancer. This information about the result of the mammogram report was provided to the patient to raise their awareness. Use this report when you speak with the patient about their risks for breast cancer, which includes their family history. At that time, you may recommend additional screening tests (Ultrasound or MRI) as these tests may add significant information. A negative radiographic report should not delay biopsy if a dominant or clinically suspicious mass is present. Up to ten percent of cancers are not identified on mammography. A negative report may reinforce clinical impression. Adenosis and dense breasts may obscure an underlying neoplasm. False positive reports average 6 to 10%.
== END ==
LOC: DI 07:35
PROVIDERS: PCP Family Medicine; Visit Provider Family Medicine
DX: Z12.31 Encounter for screening mammogram for malignant neoplasm of breast (principal); R92.323 Mammographic fibroglandular density, bilateral breasts
CPT/HCPCS: 77063; 77067